=== PATIENT | female | born 1940 | race Two or more races ===

== ENCOUNTER 2017-02-16 11:30 | Inpatient (IN) | payer BC, OTHER ==
[2017-02-16] MEDS ORDERED: ROPIVICAINE 0.2%/MORPH PF/KETOROLAC - 51ML DISP.SYRINGE IA ONE ×2 (12:42→14:27)
[2017-02-16] MEDS ORDERED: VANCOMYCIN 500 MG in DEXTROSE 5%-WATER - 250 ML IVPB ONE (12:42)
[2017-02-16] MEDS ORDERED: TRANEXAMIC ACID 1000 MG/10 ML VIAL IVPUSH ONE (12:42)
[2017-02-16] MEDS ORDERED: CEFAZOLIN 1 GM/D5W 1 GRAM/50 ML BAG IVPB ONE (12:42)
[2017-02-16] MEDS ORDERED: oxyCODONE HCL 10 MG SUSTAINED ACTING TABLET PO ONE (12:42)
[2017-02-16] MEDS ORDERED: MIDAZOLAM HCL 2 MG/2 ML SINGLE DOSE VIAL ONE ×2 (14:09→15:49)
[2017-02-16] MEDS ORDERED: VANCOMYCIN 1,000 MG VIAL (RESTRICTED TO ID ONLY) ONE ×2 (14:27→15:47)
[2017-02-16] MEDS ORDERED: TRANEXAMIC ACID 1000 MG/10 ML VIAL ONE (14:45)
[2017-02-16] MEDS ORDERED: ceFAZolin SODIUM 1 GM VIAL ONE (14:45)
[2017-02-16] MEDS ORDERED: PROPOFOL 20 ML ONE ×3 (14:46)
[2017-02-16] MEDS ORDERED: NEOSTIGMINE METHYLSULFATE 0.5 MG/ML - 10 ML MDV ONE (14:48)
[2017-02-16] MEDS ORDERED: ONDANSETRON 4 MG/2 ML VIAL IVPUSH PRN (15:22)
[2017-02-16] MEDS ORDERED: oxyCODONE HCL 5 MG TABLET PO PRN (15:22)
[2017-02-16] MEDS ORDERED: ACETAMINOPHEN 1000 MG/100 ML VIAL (NON FORMULARY) IVPB ONE ×2 (15:22→21:07)
[2017-02-16] MEDS ORDERED: HYDROmorphone HCL CARPU-JECT 1 MG/1 ML DISP.SYRIN IVPUSH PRN (15:22)
--- NOTE | 2017-02-16 17:46 | OP ---
Operative Note - Note: Operative Date: 02/16/17 Pre-Operative Diagnosis: Left hip osteoarthritis Operation: Proposed left total hip replacement, cancelled on the table due to aspiration. Surgeon: Joshua Chambers Economic Geographer: Marin Chambers Anesthesia: General, Spinal Fluid Volume Replaced (mls): 1,000 Operative Report Dictated: Yes
[2017-02-16] MEDS ORDERED: LABETALOL HCL 5 MG/1 ML (100MG/20 ML VIAL) ONE (18:49)
[2017-02-16] MEDS: LABETALOL HCL 5 MG/1 ML (100MG/20 ML VIAL) IVPUSH ONE (18:55)
--- NOTE | 2017-02-16 19:04 | HOSP ---
Subjective - Review of Symptoms Events since last encounter: I received a phone call from Dr.Daniel Chambers; Orthopedic ,to transfer the patient from [facility] to [facility] for further monitoring for Possible aspiration. As per our discussion, not to give any IV antibiotics or any steroids tonight. Patient is extubated at this time. Nurse elementary supervisor is trying to arrange Bed to tx the patient to [facility]. Physical Examination Vital Signs: Vital Signs Temperature 97.6 F 02/16/17 17:17 Pulse Rate 86 02/16/17 18:45 Respiratory Rate 22 02/16/17 18:45 Blood Pressure 188/87 02/16/17 18:45 O2 Sat by Pulse Oximetry (%) 97 02/16/17 18:45
--- NOTE | 2017-02-16 20:38 | PN ---
Teaching Attending Note Name of Resident: Altaf Cisneros ATTENDING PHYSICIAN STATEMENT I saw and evaluated the patient. I reviewed the resident's note and discussed the case with the resident. I agree with the resident's findings and plan as documented. SUBJECTIVE: 76 F with pmhx of L. hip OA, htn depression who was supposed to have a L. hip replacement today, but procedure was cancelled due to possible aspiration. Pt. states she has a dry cough, which she attributes to a post-nasal drip. No fevers or ch OBJECTIVE: Physical: VS: Vital Signs Period Temp Pulse Resp BP Sys/Hicks Pulse Ox Last 24 Hr 97.6 F-97.6 F 60-95 12-22 144-188/77-102 95-100 GEN: NAD, Resting in bed, AA0X3 HEENT: NCAT, PERRL, Throat without erythema or exudates CARD: RRR S1, S2 RESP: CTAB ABD:BSx 4, NTD to palpation EXT: - C/C/E Home Medications Medication Instructions Recorded Acetaminophen W/ Codeine #3 1 tab PO BID 02/11/17 [Tylenol # 3 -] Amlodipine Besylate 10 mg PO DAILY 02/11/17 Aspirin [Ecotrin] 81 mg PO DAILY 02/11/17 Atorvastatin Ca [Lipitor] 80 mg PO HS 02/11/17 Clonidine HCl 0.1 mg PO HS 02/11/17 Hydrochlorothiazide 50 mg PO DAILY 02/11/17 Loratadine 10 mg PO DAILY 02/11/17 Metoprolol Succinate [Toprol Xl -] 75 mg PO HS 02/11/17 Paroxetine HCl [Paxil] 40 mg PO DAILY 02/11/17 Quinapril HCl [Accupril] 40 mg PO BID 02/11/17 CXR- EKG: jxnal rhythem ASSESSMENT AND PLAN: 76 F with pmhx of L. hip OA, HTN, Depression, HLDm, who was supposed to have a L. hip replacement today, but procedure was cancelled due to possible aspiration 1.) ? Aspiration ro PNA - Monitor as per Sx. did not recc abx. at this time - CBC 2..) OA L. Hip - Pain Control 3.) HTN - C/W Home meds - Chk. CMP 4.) Depression - C/W home meds Monitored in ICU CC Time:
--- NOTE | 2017-02-16 20:53 | CONSULT ---
Consult Consult Specialty:: Pulm/CCM Reason for Consultation:: Possible Aspiration Pneuminitis d/t witnessed aspiration during intubation for surgery - History of Present Illness Chief Complaint: Lt hip pain History of Present Illness: 76yow with PMHx of HTN, HLD, CVA, CKD3, former smoker, depression OA scheduled for planned elective Lt hip replacement today at [place] that was aborted d/ t witnessed aspiration during intubation in the OR. Pt was weaned and extubated successfully to NC O2 and transferred to [facility] ICU for monitoring. Rec'd pt in A+O x3, in NAD, HD stable and c/o Lt hip pain which was resolved with IV tylenol. O2 sat 96% on NC 2l. Has strong cough. Sitting up in bed and instructed in use of incentive spirometer. - History Source History Provided By: Patient, Family Member, Medical Record Limitations to Obtaining History: No Limitations - Past Medical History PROJECT MANAGER INTERIOR DESIGN: Yes: CVA Cardio/Vascular: Yes: HTN, Hyperlipdemia Renal/: Yes: Other (CKD3) Psych: Yes: Depression Musculoskeletal: Yes: Osteoarthritis - Alcohol/Substance Use Hx Alcohol Use: Yes (WINE 1/DAY) - Smoking History Smoking history: Former smoker Have you smoked in the past 12 months: No If you are a former smoker, when did you quit?: 07/12 - Social History Usual Living Arrangement: With Child Home Medications - Allergies Allergies/Adverse Reactions: Allergies Allergy/AdvReac Type Severity Reaction Status Date / Time Sulfa (Sulfonamide Allergy Unknown Verified 02/11/17 11:58 Antibiotics) - Home Medications Home Medications: Ambulatory Orders Acetaminophen W/ Codeine #3 [Tylenol # 3 -] 1 tab PO BID 02/11/17 Amlodipine Besylate 10 mg PO DAILY 02/11/17 Aspirin [Ecotrin] 81 mg PO DAILY 02/11/17 Atorvastatin Ca [Lipitor] 80 mg PO HS 02/11/17 Clonidine HCl 0.1 mg PO HS 02/11/17 Hydrochlorothiazide 50 mg PO DAILY 02/11/17 Loratadine 10 mg PO DAILY 02/11/17 Metoprolol Succinate [Toprol Xl -] 75 mg PO HS 02/11/17 Paroxetine HCl [Paxil] 40 mg PO DAILY 02/11/17 Quinapril HCl [Accupril] 40 mg PO BID 12/15/17 Family Disease History - Family Disease History Family History: Unremarkable Physical Exam Vital Signs: Vital Signs Temperature 97.6 F 02/16/17 19:48 Pulse Rate 87 02/16/17 19:48 Respiratory Rate 22 02/16/17 19:48 Blood Pressure 166/90 02/16/17 19:48 O2 Sat by Pulse Oximetry (%) 95 02/16/17 19:00 Constitutional: Yes: Well Nourished, No Distress Eyes: Yes: WNL HENT: Yes: Atraumatic, Normocephalic Neck: Yes: Supple, Trachea Midline Cardiovascular: Yes: Regular Rate and Rhythm Respiratory: Yes: CTA Bilaterally, Diminished (L base with slight rales) Gastrointestinal: Yes: Normal Bowel Sounds, Soft, Abdomen, Obese Musculoskeletal: Yes: Joint Stiffness, Other (Left hip pain) Edema: Yes Edema: LLE: Trace, RLE: Trace Peripheral Pulses WNL: Yes Neurological: Yes: Alert, Oriented Psychiatric: Yes: Alert, Oriented Labs: Current Medications Acetaminophen (Tylenol -) 650 mg PO Q6H JENNIFER Stop: 02/19/17 15:29 Ondansetron HCl (Zofran Injection) 4 mg IVPUSH Q6H PRN PRN Reason: NAUSEA AND/OR VOMITING Initial Vital Signs Temp Pulse Resp BP 99.1 F 88 20 148/78 02/11/17 12:08 02/11/17 12:08 02/11/17 12:08 02/11/17 12:08 Imaging - Results Chest X-ray: Report Reviewed Problem List - Problems (1) Aspiration into airway Code(s): T17.908A - UNSP FB IN RESP TRACT, PART UNSP CAUSING OTH INJURY, INIT (2) Osteoarthritis Code(s): M19.90 - UNSPECIFIED OSTEOARTHRITIS, UNSPECIFIED SITE Assessment/Plan 76yow with PMHx of HTN, HLD, CVA, CKD3, former smoker, depression OA scheduled for planned elective Lt hip replacement today at [place] that was aborted d/ t witnessed aspiration during intubation in the OR. Pt was weaned and extubated successfully to NC O2 and transferred to [facility] ICU for monitoring. No antibiotics recommended for possible aspiration pneumonitis at this time. Plan: -NC O2 as needed for O2 sat>92% -AM CXR -Pulm toilet -Incentive spirometer -Clears -Pain management -Restart anti HTN meds -DVT proph Leigh Steven, ACNP CC Time 35mins
--- NOTE | 2017-02-16 21:55 | HP ---
CHIEF COMPLAINT: Blanca-operative suspected aspiration PCP: Dr. Burnette HISTORY OF PRESENT ILLNESS: 76 yo woman w/ pmh of HTN, GERD and OA of L hip who underwent an elective L hip replacement w/ Dr. Miranda at [place] today, however surgery was aborted due to witnessed aspiration during intubation. Pt was successfully extubated and transitioned to SD, stable and satting well 95-97% on transfer to ICU. Per pt and daughter, pt w/ no PO intake since 9PM prior day. Pt has never received GA before and endorses no prior aspiration events in past. No hx of LES dysfunction , gastroparesis, however does endorse hx of GERD but takes no medication. Pt with persistent non-productive cough and anterior pleuritic CP worsened by cough since procedure. Presently, pt denies SY/lightheadness, fever/chills, SOB , chest tightness, N/V, abdominal pain or any new neuro symptoms. Per surgical team, pt to receive no abx or steroids overnight. Transferred from [place] Recent Travel: None PAST MEDICAL HISTORY: HTN GERD OA (L hip) Depression PAST SURGICAL HISTORY: Colonoscopy - multiple years ago Upper endoscopy (2 years ago) - reason unknown per pt Social History: Smoking: Former smoker. Alcohol: Social drinker. 2-3 drinks per week Drugs: Marijuana. last smoked w/ months Family History: Brother w/ diabetes Multiple siblings w/ HTN Allergies Sulfa (Sulfonamide Antibiotics) Allergy (Unknown, Verified 02/11/17 11:58) HOME MEDICATIONS: Home Medications Medication Instructions Recorded Acetaminophen W/ Codeine #3 1 tab PO BID 02/11/17 [Tylenol # 3 -] Amlodipine Besylate 10 mg PO DAILY 02/11/17 Aspirin [Ecotrin] 81 mg PO DAILY 02/11/17 Atorvastatin Ca [Lipitor] 80 mg PO HS 02/11/17 Clonidine HCl 0.1 mg PO HS 02/11/17 Hydrochlorothiazide 50 mg PO DAILY 02/11/17 Loratadine 10 mg PO DAILY 02/11/17 Metoprolol Succinate [Toprol Xl -] 75 mg PO HS 02/11/17 Paroxetine HCl [Paxil] 40 mg PO DAILY 02/11/17 Quinapril HCl [Accupril] 40 mg PO BID 02/11/17 REVIEW OF SYSTEMS CONSTITUTIONAL: Absent: fever, chills, diaphoresis, generalized weakness, malaise HEENT: nasal congestion, Absent: rhinorrhea, throat pain, throat swelling, difficulty swallowing, mouth swelling, ear pain, eye pain, visual changes CARDIOVASCULAR: Absent: chest pain, syncope, palpitations, irregular heart rate, lightheadedness , peripheral edema RESPIRATORY: dry cough Absent: shortness of breath, dyspnea with exertion, orthopnea, wheezing, stridor , hemoptysis GASTROINTESTINAL: Absent: abdominal pain, abdominal distension, nausea, vomiting, diarrhea, constipation, melena, hematochezia GENITOURINARY: Absent: dysuria, frequency, urgency, hesitancy, hematuria MUSCULOSKELETAL: arthralgia in L hip, pain in L thigh Absent: myalgia, joint swelling, back pain, neck pain SKIN: Absent: rash, itching, pallor HEMATOLOGIC/IMMUNOLOGIC: Absent: easy bleeding, easy bruising, lymphadenopathy, frequent infections ENDOCRINE: Absent: unexplained weight gain, unexplained weight loss, heat intolerance, cold intolerance NEUROLOGIC: Absent: headache, focal weakness or paresthesias, dizziness, unsteady gait, seizure, mental status changes, bladder or bowel incontinence PHYSICAL EXAMINATION Vital Signs - 24 hr 02/16/17 02/16/17 02/16/17 17:17 17:25 17:30 Temperature 97.6 F Pulse Rate 61 60 62 Respiratory 14 12 17 Rate Blood Pressure 144/77 153/84 162/90 O2 Sat by Pulse 100 100 100 Oximetry (%) 02/16/17 02/16/17 02/16/17 17:45 17:53 18:00 Temperature Pulse Rate 68 90 Respiratory 16 17 14 Rate Blood Pressure 174/81 177/84 O2 Sat by Pulse 100 99 Oximetry (%) 02/16/17 02/16/17 02/16/17 18:11 18:15 18:30 Temperature Pulse Rate 95 H 88 88 Respiratory 14 16 Rate Blood Pressure 166/102 159/87 O2 Sat by Pulse 100 98 98 Oximetry (%) 02/16/17 02/16/17 02/16/17 18:45 19:00 19:48 Temperature 97.6 F Pulse Rate 86 87 87 Respiratory 22 22 22 Rate Blood Pressure 188/87 166/90 166/90 O2 Sat by Pulse 97 95 Oximetry (%) GENERAL: Awake, alert, and fully oriented, in mild distress HEAD: Normal with no signs of trauma. EYES: Pupils equal, round and reactive to light, extraocular movements intact, sclera anicteric, conjunctiva clear. No lid lag. EARS, NOSE, THROAT: Ears normal, nares patent, Small palatal petechiae. Moist mucous membranes. NECK: Normal range of motion, supple without lymphadenopathy, JVD, or masses. LUNGS: Trace crackles in LLL. Otherwise, CTAB. No wheezes. No accessory muscle use. HEART: Regular rate and rhythm, normal S1 and S2 without murmur, rub or gallop. ABDOMEN: Increased tone diffusely. Nontender, not distended, normoactive bowel sounds, no guarding, no rebound, no masses. No hepatomegaly or splenomegaly. MUSCULOSKELETAL: Decreased ROM of L hip to passive/active movement. No CVA tenderness. UPPER EXTREMITIES: 2+ pulses, warm, well-perfused. No cyanosis. No clubbing. No peripheral edema. LOWER EXTREMITIES: 2+ DP, PT pulses. Warm, well-perfused. No calf tenderness. No peripheral edema. NEUROLOGICAL: Cranial nerves II-XII intact. Normal speech. Normal gait. 5/5 strength in all muscle groups in upper extremities, 2+ biceps reflexes, preserved sensation to light touch diffusely. 5/5 strength to flexion/extension in knees BL, dorsi/plantarflexion BL. Preserved sensation to light touch diffusely BL. PSYCHIATRIC: Cooperative. Good eye contact. Appropriate mood and affect. SKIN: Warm, dry, normal turgor, no rashes or lesions noted, normal capillary refill. EKG 02/16: Poor quality paper copy. Rate 55, NAD, QTc 434. No gross ST elevation or TWI. CXR 02/16: An endotracheal tube is seen in place with the tip approximately 1.7 cm from the tracheal bifurcation (optimal distance 3 to 6 cm). Right upper lobe curvilinear opacity is noted which may represent scarring versus representing subsegmental atelectasis. Correlate with close follow-up radiography. Pleural thickening is seen within the right upper chest laterally ASSESSMENT/PLAN: 76 yo woman w/ pmh of HTN, GERD and OA of L hip who underwent an elective L hip replacement w/ Dr. Miranda at [place] today, however surgery was aborted due to witnessed aspiration during intubation. #Suspected aspiration event - NC O2. Titrate as needed. Maintain sat >94% - AM CXR - Trend fever, WBC count - Pulm consult per surgical team, f/u recs - Incentive spirometer - No steroids or abx per surgical team. Will f/u in AM. - Pulm toilet #R hip OA - Pain control w/ IV tylenol - Defer to surgical team for further plan #HTN -Continue home BP meds -Confirm meds in AM #HLD - Atorvastatin 80mg #GERD - PPI #Depression - Continue home paxil PPX SubQ heparin FEN: Fluids - PO hydration Electrolytes - Daily BMPs Nutrition - Clears Plan discussed with attending, Dr. Tameka Cisneros, PGY1 Visit type - Emergency Visit Emergency Visit: No - New Patient This patient is new to me today: Yes Date on this admission: 02/17/17 - Critical Care Critical Care patient: Yes Total Critical Care Time (in minutes): 35 Critical Care Statement: The care of this patient involved high complexity decision making to prevent further life threatening deterioration of the patient 's condition and/or to evaluate & treat vital organ system(s) failure or risk of failure.
[2017-02-16] MEDS ORDERED: oxyCODONE HCL 10 MG SUSTAINED ACTING TABLET PO SCH (22:00)
[2017-02-16] MEDS: ACETAMINOPHEN 325 MG TABLET (FP) PO SCH (22:00)
[2017-02-16 22:09] VITALS: BMI 28.6
[2017-02-17] MEDS: ACETAMINOPHEN 325 MG TABLET (FP) PO SCH ×3 (03:30→17:40)
[2017-02-17] MEDS: HEPARIN NA (PORCINE) 5,000 UNITS/ML 1ML VIAL SQ SCH ×3 (06:16→22:16)
[2017-02-17 06:19] LABS: BASO % 0.3 % (0-2.0); EOS % 0.5 % (0-4.5); HEMATOCRIT 31.1 % (32.4-45.2); HEMOGLOBIN 10.7 GM/dL (10.7-15.3); LYMPH % 19.9 % (8-40); MCHC 34.3 g/dl (32.0-36.0); MEAN CELL VOLUME 90.2 fl (80-96); MEAN PLT VOLUME 7.6 fl (7.5-11.1); MONO % 5.6 % (3.8-10.2); NEUT % 73.7 % (42.8-82.8); PLATELET COUNT 213 K/MM3 (134-434); RBC 3.45 M/mm3 (3.60-5.2); RDW 13.5 % (11.6-15.6); WHITE BLOOD COUNT 9.7 K/mm3 (4.0-10.0)
[2017-02-17 06:46] LABS: ALBUMIN 3.5 g/dl (3.4-5.0); ANION GAP 7 (8-16); BLOOD UREA NITROGEN 13 mg/dL (7-18); CALCIUM 9.3 mg/dL (8.5-10.1); CHLORIDE 103 mmol/L (98-107); CO2 31 mmol/L (21-32); GLUCOSE,RANDOM 101 mg/dL (74-106); POTASSIUM 4.1 mmol/L (3.5-5.1); SODIUM 141 mmol/L (136-145)
[2017-02-17 06:51] LABS: ALK PHOS 91 U/L (45-117); BILIRUBIN,TOTAL 0.5 mg/dL (0.2-1.0); CREATININE 1.2 mg/dL (0.55-1.02); SGOT/AST 20 U/L (15-37); SGPT/ALT 22 U/L (12-78); TOT PROT 6.5 g/dl (6.4-8.2)
[2017-02-17] MEDS ORDERED: AMPICILLIN NA/SULBACTAM NA 3 GM in SODIUM CHLORIDE 100 ML IVPB ONE (09:21)
[2017-02-17] MEDS ORDERED: PANTOPRAZOLE 40 MG TABLET (FP) PO SCH ×4 (10:00→22:00)
[2017-02-17] MEDS ORDERED: PARoxetine HCL 20 MG TABLET (FP) PO SCH (10:00)
[2017-02-17] MEDS ORDERED: ACETAMINOPHEN WITH CODEINE 300MG/30MG TABLET PO PRN ×2 (10:08→16:04)
[2017-02-17] MEDS ORDERED: HYDROCHLOROTHIAZIDE 25 MG TABLET (FP) PO SCH (11:00)
[2017-02-17] MEDS ORDERED: ASPIRIN COATED 81 MG TABLET.EC PO SCH (11:00)
[2017-02-17] MEDS ORDERED: amLODIPine BESYLATE 10 MG TABLET (FP) PO SCH (11:00)
[2017-02-17] MEDS ORDERED: QUINAPRIL HCL 40 MG TABLET (FP) PO SCH ×2 (11:00→22:00)
[2017-02-17] MEDS ORDERED: PT OWN MED DRAWER 7, Y5N ONE ×4 (11:39→21:56)
--- NOTE | 2017-02-17 12:11 | OP ---
DATE OF OPERATION: 02/16/2017 SURGEON: Joshua Chambers MD CORN SHELLER OPERATOR: Marin Chambers MD PREOPERATIVE DIAGNOSIS: Osteoarthritis, left hip. POSTOPERATIVE DIAGNOSIS: Operation canceled due to aspiration event on the table. ANESTHESIA: Spinal with conscious sedation. OPERATION DETAILS: The patient correctly identified, brought to the operating room. The patient was placed in the lateral decubitus position, left side up. Attention to details of the bolster clamps for the lateral positioning was performed as routine for this operation. The manufactured padded components of the device were placed in the usual manner on the anterior-superior iliac spine, both left- and right-hand side, and then, on the lumbosacral junction posteriorly, all pads on bony prominences. The abdomen was free. An appropriate routine prep with Betadine scrub solution and alcohol was performed. The limb was isolated with the appropriate U isolation drapes, and at that point, I proceeded to go ahead with hand wash prior to surgical intervention. I was called by the anesthesia team at that point to state that bile and intraabdominal content were being exuded from the mouth. It was at this point that we elected to abandon the clamps, that is the bolsters that were holding the patient in the lateral decubitus position. The patient was then turned into the supine position, and in order to facilitate procedure with the total hip arthroplasty, it was elected to go ahead with regular intubation and proceed. However, the degree of aspiration content was noted from the endotracheal tube. Once the patient was placed in the supine position, it was noted that there was excessive amount of intraabdominal content in the pharyngeal region and nasopharyngeal area. This was suctioned appropriately, and intubation was proceeded with and was uneventful in its execution. At that point, the anesthesia team auscultated the lung dove, found significant adventitious sounds such as rhonchi and crackles, and when this was noted clinically, it was elected, after careful discussion in a combined fashion with the surgical as well as anesthesia team, to not proceed with any further surgery due to the concern of a possible aspiration event. Patient was kept intubated, transferred to the PACU unit, and will be managed by the appropriate medical and respiratory team. Hopefully, the patient will recover without any undue problems, and the patient will be brought back on a separate occasion to proceed with the proposed surgical intervention. MD SANDRA Corbett/[id number]
--- NOTE | 2017-02-17 12:21 | PN ---
Teaching Attending Note Name of Resident: Vanna Khan ATTENDING PHYSICIAN STATEMENT I saw and evaluated the patient. I reviewed the resident's note and discussed the case with the resident. I agree with the resident's findings and plan as documented. SUBJECTIVE: Patient is comfortable with no acute distress. OBJECTIVE: Vital Signs Temperature 100.1 F H 02/17/17 10:00 Pulse Rate 76 02/17/17 10:36 Respiratory Rate 16 02/17/17 10:27 Blood Pressure 135/72 02/17/17 11:47 O2 Sat by Pulse Oximetry (%) 92 L 02/17/17 10:36 CBCD WBC 9.7 K/mm3 (4.0-10.0) 02/17/17 06:00 RBC 3.45 M/mm3 (3.60-5.2) L 02/17/17 06:00 Hgb 10.7 GM/dL (10.7-15.3) 02/17/17 06:00 Hct 31.1 % (32.4-45.2) L 02/17/17 06:00 MCV 90.2 fl (80-96) 02/17/17 06:00 MCHC 34.3 g/dl (32.0-36.0) 02/17/17 06:00 RDW 13.5 % (11.6-15.6) 02/17/17 06:00 Plt Count 213 K/MM3 (134-434) 02/17/17 06:00 MPV 7.6 fl (7.5-11.1) 02/17/17 06:00 CMP Sodium 141 mmol/L (136-145) 02/17/17 06:00 Potassium 4.1 mmol/L (3.5-5.1) 02/17/17 06:00 Chloride 103 mmol/L (98-107) 02/17/17 06:00 Carbon Dioxide 31 mmol/L (21-32) 02/17/17 06:00 Anion Gap 7 (8-16) L 02/17/17 06:00 BUN 13 mg/dL (7-18) 02/17/17 06:00 Creatinine 1.2 mg/dL (0.55-1.02) H 02/17/17 06:00 Creat Clearance w eGFR 43.68 (>60) 02/17/17 06:00 Random Glucose 101 mg/dL (74-106) 02/17/17 06:00 Calcium 9.3 mg/dL (8.5-10.1) 02/17/17 06:00 Total Bilirubin 0.5 mg/dL (0.2-1.0) 02/17/17 06:00 AST 20 U/L (15-37) 02/17/17 06:00 ALT 22 U/L (12-78) 02/17/17 06:00 Alkaline Phosphatase 91 U/L (45-117) 02/17/17 06:00 Total Protein 6.5 g/dl (6.4-8.2) 02/17/17 06:00 Albumin 3.5 g/dl (3.4-5.0) 02/17/17 06:00 Current Medications Generic Name Dose Route Start Last Admin Trade Name Freq PRN Reason Stop Dose Admin Acetaminophen 650 mg 02/16/17 15:30 02/17/17 03:30 Tylenol - PO 02/19/17 15:29 Not Given Q6H JENNIFER Acetaminophen/Codeine Phosphate 1 tab 02/17/17 10:08 02/17/17 10:42 Tylenol # 3 - PO 1 tab Q6H PRN Administration FEVER OR PAIN Amlodipine Besylate 10 mg 02/17/17 11:00 02/17/17 11:35 Norvasc - PO 10 mg DAILY JENNIFER Administration Aspirin 81 mg 02/17/17 11:00 02/17/17 11:34 Ecotrin - PO 81 mg DAILY JENNIFER Administration Atorvastatin Calcium 80 mg 02/17/17 22:00 Lipitor - PO HS JENNIFER Clonidine 0.1 mg 02/17/17 22:00 Catapres - PO HS JENNIFER Heparin Sodium (Porcine) 5,000 unit 02/17/17 06:00 02/17/17 06:16 Heparin - SQ 5,000 unit TID JENNIFER Administration Hydrochlorothiazide 50 mg 02/17/17 11:00 02/17/17 11:40 Hctz - PO 50 mg DAILY JENNIFER Administration Metoprolol Succinate 75 mg 02/17/17 22:00 Toprol Xl - PO HS JENNIFER Ondansetron HCl 4 mg 02/16/17 15:22 Zofran Injection IVPUSH Q6H PRN NAUSEA AND/OR VOMITING Pantoprazole Sodium 40 mg 02/17/17 10:00 02/17/17 11:34 Protonix - PO 40 mg BID JENNIFER Administration Paroxetine HCl 40 mg 02/17/17 10:00 02/17/17 11:40 Paxil - PO 40 mg DAILY JENNIFER Administration Quinapril HCl 40 mg 02/17/17 11:00 Accupril - PO BID [facility] Home Medications Medication Instructions Recorded Acetaminophen W/ Codeine #3 1 tab PO BID 02/11/17 [Tylenol # 3 -] Amlodipine Besylate 10 mg PO DAILY 02/11/17 Aspirin [Ecotrin] 81 mg PO DAILY 02/11/17 Atorvastatin Ca [Lipitor] 80 mg PO HS 02/11/17 Clonidine HCl 0.1 mg PO HS 02/11/17 Hydrochlorothiazide 50 mg PO DAILY 02/11/17 Loratadine 10 mg PO DAILY 02/11/17 Metoprolol Succinate [Toprol XL -] 75 mg PO HS 02/11/17 Paroxetine HCl [Paxil] 40 mg PO DAILY 02/11/17 Quinapril HCl [Accupril -] 40 mg PO BID 02/11/17 PE: comfortable, with no acute distress. CHESt: CTABL Heart:S1S2 positive abdomen: soft, NT ext: pulses are positive ASSESSMENT AND PLAN: Patient is a 76 F with pmhx of L. hip OA, HTN, Depression, HLD was transferred from [facility] due to possible having aspiration Pneumonia right before the procedure for left hip placement. The procedure was discontinued. # Acute Hypoxia , low oxygenation on RA , the discharge was held, oxygen therapy , incentive spirometer. # OA of Left hip, Sx needs to be rescheduled and pulmonary clearance prior to surgery . Patient is aware. # OA Left Hip needing surgical replacement. Pain Control # HTN continue Home meds # hx of Depression continue home meds. DVT Px: Heparin sq
--- NOTE | 2017-02-17 12:31 | PN ---
Physical Exam: SUBJECTIVE: Patient seen and examined 76 year old F with pmh L hip OA, HTN, gerd presented with possible aspiration pneumonia. Patient had no acute events overnight. Patient feels better this AM. Patient endorses mild cough. Denies fever, chills, chest pain, SOB. Patient has left hip pain. OBJECTIVE: Vital Signs Period Temp Pulse Resp BP Sys/Hicks Pulse Ox Last 24 Hr 97.6 F-100.1 F 60-95 12-22 133-188/64-119 92-100 GENERAL: The patient is awake, alert, and fully oriented, in no acute distress. HEAD: Normal with no signs of trauma. EYES: Extraocular movements intact, sclera anicteric, conjunctiva clear. No ptosis. ENT: Oropharynx clear without exudates, moist mucous membranes. NECK: Trachea midline, full range of motion, supple. LUNGS: Breath sounds equal, no wheezes, no crackles, no accessory muscle use. + mild RUL rhonchi HEART: Regular rate and rhythm, S1, S2 without murmur, rub or gallop. ABDOMEN: Soft, nontender, nondistended, normoactive bowel sounds, no guarding, no rebound, no hepatosplenomegaly, no masses. EXTREMITIES: 2+ pulses, warm, well-perfused, no edema. NEUROLOGICAL: Cranial nerves II through XII grossly intact. Normal speech, gait not observed. PSYCH: Normal mood, normal affect. SKIN: Warm, dry, normal turgor, no rashes or lesions noted Laboratory Results - last 24 hr 02/17/17 02/17/17 06:00 06:00 WBC 9.7 RBC 3.45 L Hgb 10.7 Hct 31.1 L MCV 90.2 MCH 31.0 MCHC 34.3 RDW 13.5 Plt Count 213 MPV 7.6 Neutrophils % 73.7 Lymphocytes % 19.9 Monocytes % 5.6 Eosinophils % 0.5 Basophils % 0.3 Sodium 141 Potassium 4.1 Chloride 103 Carbon Dioxide 31 Anion Gap 7 L BUN 13 Creatinine 1.2 H Creat Clearance w eGFR 43.68 Random Glucose 101 Calcium 9.3 Total Bilirubin 0.5 AST 20 ALT 22 Alkaline Phosphatase 91 Total Protein 6.5 Albumin 3.5 Active Medications Generic Name Dose Route Start Last Admin Trade Name Freq PRN Reason Stop Dose Admin Acetaminophen 650 mg 02/16/17 15:30 02/17/17 03:30 Tylenol - PO 02/19/17 15:29 Not Given Q6H JENNIFER Acetaminophen/Codeine Phosphate 1 tab 02/17/17 10:08 02/17/17 10:42 Tylenol # 3 - PO 1 tab Q6H PRN Administration FEVER OR PAIN Amlodipine Besylate 10 mg 02/17/17 11:00 02/17/17 11:35 Norvasc - PO 10 mg DAILY JENNIFER Administration Aspirin 81 mg 02/17/17 11:00 02/17/17 11:34 Ecotrin - PO 81 mg DAILY JENNIFER Administration Atorvastatin Calcium 80 mg 02/17/17 22:00 Lipitor - PO HS JENNIFER Clonidine 0.1 mg 02/17/17 22:00 Catapres - PO HS JENNIFER Heparin Sodium (Porcine) 5,000 unit 02/17/17 06:00 02/17/17 06:16 Heparin - SQ 5,000 unit TID JENNIFER Administration Hydrochlorothiazide 50 mg 02/17/17 11:00 02/17/17 11:40 Hctz - PO 50 mg DAILY JENNIFER Administration Metoprolol Succinate 75 mg 02/17/17 22:00 Toprol Xl - PO HS JENNIFER Ondansetron HCl 4 mg 02/16/17 15:22 Zofran Injection IVPUSH Q6H PRN NAUSEA AND/OR VOMITING Pantoprazole Sodium 40 mg 02/17/17 10:00 02/17/17 11:34 Protonix - PO 40 mg BID JENNIFER Administration Paroxetine HCl 40 mg 02/17/17 10:00 02/17/17 11:40 Paxil - PO 40 mg DAILY JENNIFER Administration Quinapril HCl 40 mg 02/17/17 11:00 Accupril - PO BID [facility] ASSESSMENT/PLAN: 76 yo woman w/ pmh of HTN, GERD and OA of L hip who underwent an elective L hip replacement w/ Dr. Miranda at [place] today, however surgery was aborted due to witnessed aspiration during intubation. Resp Possible aspiration pna vs chemical pneumonitis - NC O2. Titrate as needed. Maintain sat >94% - Trend fever, WBC count. Tmax of 100.1 - Incentive spirometer MSK R hip OA - Pain control w/ IV tylenol - Pt will f/u outpatient CV HTN - Continue home BP meds HLD - Atorvastatin 80mg GI GERD -PO protonix 40 mg bid PSYCH Depression - Continue home paxil FEN: -Fluids - PO hydration -Electrolytes - Daily BMPs -Nutrition -Sodium controlled diet PPX -SubQ heparin -PO protonix Dispo: Patient will be dc home per primary team Visit type - Emergency Visit Emergency Visit: Yes ED Registration Date: 02/16/17 Care time: The patient presented to the Emergency Department on the above date and was hospitalized for further evaluation of their emergent condition. - New Patient This patient is new to me today: Yes Date on this admission: 02/17/17 - Critical Care Critical Care patient: Yes Total Critical Care Time (in minutes): 35 Critical Care Statement: The care of this patient involved high complexity decision making to prevent further life threatening deterioration of the patient 's condition and/or to evaluate & treat vital organ system(s) failure or risk of failure.
--- NOTE | 2017-02-17 13:13 | PN ---
Teaching Attending Note Name of Resident: Vahid Biswas ATTENDING PHYSICIAN STATEMENT I saw and evaluated the patient. I reviewed the resident's note and discussed the case with the resident. I agree with the resident's findings and plan as documented. SUBJECTIVE: Pt seen and examined in the ICU. Denies shortness of breath. Mild nonproductive cough. Saturating well on room air. c/o left hip pain. OBJECTIVE: Last Vital Signs Temp Pulse Resp BP Pulse Ox 100.1 F H 76 16 135/72 92 L 02/17/17 10:00 02/17/17 10:36 02/17/17 10:27 02/17/17 11:47 02/17/17 10:36 Intake & Output 02/14/17 02/15/17 02/16/17 02/17/17 23:59 23:59 23:59 23:59 Intake Total 2000 370 Output Total 200 Balance 1800 370 Weight 73.4 kg 81.306 kg Gen: NAD at rest Heart: RRR Lung: clear to auscultation Abd: soft, nontender Ext: no edema CBC, BMP 02/17/17 06:00 02/17/17 06:00 Active Medications Acetaminophen (Tylenol -) 650 mg PO Q6H [facility] Stop: 02/19/17 15:29 Last Admin: 02/17/17 03:30 Dose: Not Given Acetaminophen/Codeine Phosphate (Tylenol # 3 -) 1 tab PO Q6H PRN PRN Reason: FEVER OR PAIN Last Admin: 02/17/17 10:42 Dose: 1 tab Amlodipine Besylate (Norvasc -) 10 mg PO DAILY [facility] Last Admin: 02/17/17 11:35 Dose: 10 mg Aspirin (Ecotrin -) 81 mg PO DAILY [facility] Last Admin: 02/17/17 11:34 Dose: 81 mg Atorvastatin Calcium (Lipitor -) 80 mg PO HS JENNIFER Clonidine (Catapres -) 0.1 mg PO HS JENNIFER Heparin Sodium (Porcine) (Heparin -) 5,000 unit SQ TID [facility] Last Admin: 02/17/17 06:16 Dose: 5,000 unit Hydrochlorothiazide (Hctz -) 50 mg PO DAILY [facility] Last Admin: 02/17/17 11:40 Dose: 50 mg Metoprolol Succinate (Toprol Xl -) 75 mg PO HS JENNIFER Ondansetron HCl (Zofran Injection) 4 mg IVPUSH Q6H PRN PRN Reason: NAUSEA AND/OR VOMITING Pantoprazole Sodium (Protonix -) 40 mg PO BID [facility] Last Admin: 02/17/17 11:34 Dose: 40 mg Paroxetine HCl (Paxil -) 40 mg PO DAILY [facility] Last Admin: 02/17/17 11:40 Dose: 40 mg Quinapril HCl (Accupril -) 40 mg PO BID [facility] ASSESSMENT AND PLAN: Aborted L Hip Replacement Aspiration Event HTN Hyperlipidemia CKD h/o CVA - resume home meds - can monitor off antibiotics - PO as tolerated - DVT prophylaxis - can transfer to floor or d/c home from pulmonary standpoint
--- NOTE | 2017-02-17 14:21 | PN ---
Progress Note, Physician Chief Complaint: Pt. has mild non productive cough, and no anesthesia complaints. - Current Medication List Current Medications: Active Medications Acetaminophen (Tylenol -) 650 mg PO Q6H [facility] Stop: 02/19/17 15:29 Last Admin: 02/17/17 03:30 Dose: Not Given Acetaminophen/Codeine Phosphate (Tylenol # 3 -) 1 tab PO Q6H PRN PRN Reason: FEVER OR PAIN Last Admin: 02/17/17 10:42 Dose: 1 tab Amlodipine Besylate (Norvasc -) 10 mg PO DAILY [facility] Last Admin: 02/17/17 11:35 Dose: 10 mg Aspirin (Ecotrin -) 81 mg PO DAILY [facility] Last Admin: 02/17/17 11:34 Dose: 81 mg Atorvastatin Calcium (Lipitor -) 80 mg PO HS [facility] Clonidine (Catapres -) 0.1 mg PO HS [facility] Heparin Sodium (Porcine) (Heparin -) 5,000 unit SQ TID [facility] Last Admin: 02/17/17 06:16 Dose: 5,000 unit Hydrochlorothiazide (Hctz -) 50 mg PO DAILY [facility] Last Admin: 02/17/17 11:40 Dose: 50 mg Metoprolol Succinate (Toprol Xl -) 75 mg PO HS [facility] Ondansetron HCl (Zofran Injection) 4 mg IVPUSH Q6H PRN PRN Reason: NAUSEA AND/OR VOMITING Pantoprazole Sodium (Protonix -) 40 mg PO BID [facility] Last Admin: 02/17/17 11:34 Dose: 40 mg Paroxetine HCl (Paxil -) 40 mg PO DAILY [facility] Last Admin: 02/17/17 11:40 Dose: 40 mg Quinapril HCl (Accupril -) 40 mg PO BID [facility] - Objective Vital Signs: Vital Signs Temperature 100.1 F H 02/17/17 10:00 Pulse Rate 76 02/17/17 10:36 Respiratory Rate 16 02/17/17 10:27 Blood Pressure 135/72 02/17/17 11:47 O2 Sat by Pulse Oximetry (%) 92 L 02/17/17 10:36 Constitutional: Yes: Well Nourished, No Distress, Calm Respiratory: Yes: WNL Musculoskeletal: Yes: WNL Neurological: Yes: WNL, Alert, Oriented ...Motor Strength: WNL Labs: CBC, BMP 02/17/17 06:00 02/17/17 06:00 Assessment/Plan Day #1 s/p aborted hip replacement secondary to possible aspiration event. Doing well on room air. D/C from anesthesia care.
[2017-02-17] MEDS ORDERED: ROPIVICAINE 0.2%/MORPH PF/KETOROLAC - 51ML DISP.SYRINGE IA ONE (16:04)
[2017-02-17] MEDS ORDERED: TRANEXAMIC ACID 1000 MG/10 ML VIAL IVPUSH ONE (16:04)
[2017-02-17] MEDS ORDERED: VANCOMYCIN 500 MG in DEXTROSE 5%-WATER - 250 ML IVPB ONE (16:04)
[2017-02-17] MEDS ORDERED: ONDANSETRON 4 MG/2 ML VIAL IVPUSH PRN (16:04)
--- NOTE | 2017-02-17 16:10 | PN ---
Progress Note (short form) - Note Progress Note: Called to see a patient set for discharge home said to have been sating poorly ( 87%) on room air , while asleep. Was put on nasal cannular at 2l. Spoke with patient who on room air was sating at 97%, and at 90% asleep She said she smoked in the past, has sinus problems but has never been evaluated for obstructive Sleep apnea PE: Gen:AAO x3 Resp: Not in obvious resp distress, no use of accessory muscles Speaks in complete sentences Sating at 95% on room air Plan: D/W Dr Cotton- for discharge home with follow up for ZACARIAS D/W patient - to have outpatient sleep study To discuss with primary team
[2017-02-17] MEDS: LABETALOL HCL 5 MG/1 ML (100MG/20 ML VIAL) IVPUSH ONE (17:39)
--- NOTE | 2017-02-17 20:32 | PN ---
Physical Exam: SUBJECTIVE: Patient seen and examined. States she is feeling better. Endorses mild persistent cough and L hip pain. Denies chest pain, sob, fever, chills. OBJECTIVE: Vital Signs Period Temp Pulse Resp BP Sys/Hicks Pulse Ox Last 24 Hr 99.1 F-100.1 F 72-87 16-22 133-166/64-119 92-100 GENERAL: lying comfortably in bed, nad, aaox3, speaking in full sentences LUNGS: CTAB, no wheezes, rales or rhonchi. No accessory muscle use. HEART: rrr, normal s1/s2 ABDOMEN: Soft, ntnd, normoactive bowel sounds EXTREMITIES: 2+ radial and DP pulses, wwp, no edema CBC, BMP 02/17/17 06:00 02/17/17 06:00 Hepatic Panel Total Bilirubin 0.5 mg/dL (0.2-1.0) 02/17/17 06:00 AST 20 U/L (15-37) 02/17/17 06:00 ALT 22 U/L (12-78) 02/17/17 06:00 Alkaline Phosphatase 91 U/L (45-117) 02/17/17 06:00 Albumin 3.5 g/dl (3.4-5.0) 02/17/17 06:00 Active Medications Acetaminophen/Codeine Phosphate (Tylenol # 3 -) 1 tab PO Q6H PRN PRN Reason: FEVER OR PAIN Albuterol/Ipratropium (Duoneb -) 1 amp NEB QIDR JENNIFER Amlodipine Besylate (Norvasc -) 10 mg PO DAILY JENNIFER Aspirin (Ecotrin -) 81 mg PO DAILY [facility] Atorvastatin Calcium (Lipitor -) 80 mg PO HS JENNIFER Clonidine (Catapres -) 0.1 mg PO HS JENNIFER Heparin Sodium (Porcine) (Heparin -) 5,000 unit SQ TID JENNIFRE Hydrochlorothiazide (Hctz -) 50 mg PO DAILY JENNIFER Metoprolol Succinate (Toprol Xl -) 75 mg PO HS JENNIFER Pantoprazole Sodium (Protonix -) 40 mg PO HS JENNIFER Paroxetine HCl (Paxil -) 40 mg PO DAILY [facility] Quinapril HCl (Accupril -) 40 mg PO BID [facility] ASSESSMENT/PLAN: 76 yo woman w/ pmh of HTN, GERD and OA of L hip who underwent an elective L hip replacement w/ Dr. Miranda at [place] today, however surgery was aborted due to witnessed aspiration during intubation. #Suspected aspiration event -O2 therapy to maintain spo2>90% -Repeat CXR AM -Incentive spirometer q1H -Duo nebs QIDR #R hip OA -Pain control w/ Tylenol #3 q6h PRN -Will follow-up with Dr. Chambers to reschedule hip replacement #HTN -Continue home Metoprolol Xl 75mg PO HS, Clonidine 0.1mg PO HS, Amlodipine 10mg PO qd, Quinapril 40mg BID #HLD - Atorvastatin 80mg #GERD -Protonix 40mg HS #Depression -Continue home Paxil #PPX DVT - Heparin SQ TID #FEN: PO/ lytes wnl / Na controlled diet Dispo: transfer to /S. Will likely d/c in next 24hours FULL code d/w Dr. Reena Khan MD PGY1 - Internal Medicine Visit type - Emergency Visit Emergency Visit: No - New Patient This patient is new to me today: Yes Date on this admission: 02/17/17 - Critical Care Critical Care patient: No
[2017-02-17] MEDS ORDERED: METOPROLOL SUCCINATE 50 MG TAB.SR.24H (FP) PO SCH (22:00)
[2017-02-17] MEDS ORDERED: cloNIDine HCL 0.1 MG TABLET PO SCH ×3 (22:00)
[2017-02-17] MEDS ORDERED: ATORVASTATIN CA 80 MG TABLET (FP) PO SCH ×3 (22:00)
[2017-02-17] MEDS ORDERED: METOPROLOL SUCCINATE 25 MG TAB.SR.24H (FP) PO SCH ×2 (22:00)
[2017-02-17] MEDS ORDERED: HEPARIN NA (PORCINE) 5,000 UNITS/ML 1ML VIAL SQ SCH (22:00)
[2017-02-17] MEDS: QUINAPRIL HCL 40 MG TABLET (FP) PO SCH (22:16)
[2017-02-17] MEDS: ACETAMINOPHEN WITH CODEINE 300MG/30MG TABLET PO PRN (22:20)
[2017-02-18] MEDS: ALBUTEROL SO4 2.5/IPRATROPIUM 0.5 INH SOL 3 ML VIAL.NEB. NEB SCH ×3 (00:16→11:10)
[2017-02-18] MEDS: HEPARIN NA (PORCINE) 5,000 UNITS/ML 1ML VIAL SQ SCH ×2 (06:10→16:30)
[2017-02-18] MEDS: ACETAMINOPHEN WITH CODEINE 300MG/30MG TABLET PO PRN (08:00)
[2017-02-18 08:37] LABS: BASO % 0.4 % (0-2.0); EOS % 2.7 % (0-4.5); HEMATOCRIT 32.6 % (32.4-45.2); HEMOGLOBIN 10.8 GM/dL (10.7-15.3); LYMPH % 38.6 % (8-40); MCHC 33.2 g/dl (32.0-36.0); MEAN CELL VOLUME 90.4 fl (80-96); MEAN PLT VOLUME 7.7 fl (7.5-11.1); MONO % 7.8 % (3.8-10.2); NEUT % 50.5 % (42.8-82.8); PLATELET COUNT 208 K/MM3 (134-434); RBC 3.61 M/mm3 (3.60-5.2); RDW 13.5 % (11.6-15.6); WHITE BLOOD COUNT 5.8 K/mm3 (4.0-10.0)
[2017-02-18 08:58] LABS: ANION GAP 7 (8-16); BLOOD UREA NITROGEN 12 mg/dL (7-18); CALCIUM 9.1 mg/dL (8.5-10.1); CHLORIDE 104 mmol/L (98-107); CO2 31 mmol/L (21-32); CREATININE 1.3 mg/dL (0.55-1.02); GLUCOSE,RANDOM 110 mg/dL (74-106); POTASSIUM 3.7 mmol/L (3.5-5.1); SODIUM 142 mmol/L (136-145)
[2017-02-18] MEDS ORDERED: amLODIPine BESYLATE 10 MG TABLET (FP) PO SCH ×2 (10:00)
[2017-02-18] MEDS ORDERED: PARoxetine HCL 20 MG TABLET (FP) PO SCH ×2 (10:00)
[2017-02-18] MEDS ORDERED: HYDROCHLOROTHIAZIDE 25 MG TABLET (FP) PO SCH (10:00)
[2017-02-18] MEDS ORDERED: ASPIRIN COATED 81 MG TABLET.EC PO SCH ×2 (10:00)
[2017-02-18] MEDS ORDERED: PT OWN MED DRAWER 7, Y5N ONE (10:21)
--- NOTE | 2017-02-18 10:26 | PN ---
Progress Note (short form) - Note Progress Note: PULMONARY VSS/AFEBRILE DROWSY AFTER TYLENOL #3 ANICTERIC DIMINISHED DIFFUSE BREATH SOUNDS' S1S2 OBESE MINIMAL LOWER EXT EDEMA LABS/MEDS/NOTES/IMAGES REVIEWED CXR NORMAL NO INFILTRATE Aborted L Hip Replacement Aspiration Event HTN Hyperlipidemia CKD h/o CVA - resume home meds - monitor off antibiotics - PO as tolerated - DVT prophylaxis - check pre/post amb spo2 - possible discharge today Vineet PRUETT MD
[2017-02-18] MEDS: HYDROCHLOROTHIAZIDE 25 MG TABLET (FP) PO SCH ×2 (10:29→10:34)
[2017-02-18] MEDS: QUINAPRIL HCL 40 MG TABLET (FP) PO SCH (10:29)
[2017-02-18] MEDS ORDERED: CELECOXIB 100 MG CAPSULE PO ONE (13:29)
--- NOTE | 2017-02-18 18:27 | DS ---
Physical Exam: HOSPITAL COURSE: Date of Admission:02/16/17 Date of Discharge: 02/18/17 Pre-Hospital Course: 76yo woman with PMH of HTN, GERD and OA of L hip who underwent an elective L hip replacement w/ Dr. Miranda at [place] 02/16, however surgery was aborted due to witnessed aspiration during intubation. Pt was successfully extubated and transitioned to NC, stable and satting well 95-97% on transfer to ICU. Per pt and daughter, pt w/ no PO intake since 9PM prior day. Pt has never received GA before and endorses no prior aspiration events in past. No hx of LES dysfunction, gastroparesis, however does endorse hx of GERD, but takes no medication. Pt with persistent non-productive cough. Pt denies SY/ lightheadedness, fever/chills, SOB, chest tightness, N/V, abdominal pain or any new neuro symptoms. Subsequent admission course: Briefly, patient was able to be successfully weaned downed from NC oxygen therapy then to room air. Pulmonology was consulted, and recommended out- patient follow-up for PFTs and sleep study for ZACARIAS. Prior to discharge, patient' s Pre and post pSao2 on RA was 95% at rest and 91-92% with ambulation across the room (from window to the hallway). Patient received only paula-operative Ancef with no further antibiotics. Patient remained afebrile with no leukocytosis. Repeat CXR showed improved aeration with no focal consolidations or pleural effusions. Patient instructed on how to use Incentive Spirometer, and demonstrated understanding to use it every 1 to 2 hours while at home. Patient was started on Protonix 40mg HS for her GERD and was given a referral to GI for follow-up. Patient's blood pressure was well controlled during her admission. Consults: Pulmonology - Dr. Delgado Orthopedics - Dr. Joshua Chambers IMAGING: CXR 02/18/17 - large heart, unfolded aorta and degenerative spine and shoulder changes. An acute chest process is not seen. Since the prior exam of 02/17/2017 , the lungs are better aerated. The left base changes have resolved. Impression: No acute chest pathology at this time. Large heart. Degenerative changes. Minutes to complete discharge: 45 Discharge Summary Reason For Visit: LEFT OSTEOARTHRITIS Current Active Problems Aspiration into airway (Acute) Osteoarthritis (Acute) Condition: Stable - Instructions Diet, Activity, Other Instructions: You were admitted to the hospital for an aspiration event prior to your elective orthopedic surgery. Recommendations: -You can resume your regular daily activities and diet. -Use your Incentive Spirometer as directed every 1-2 hours while you are awake to prevent pneumonia Medications: -You may resume your regular daily medications with the following addition: (1) Take Protonix 40mg by mouth at bedtime for your reflux. Discuss with Dr. Cuevas (stomach doctor) when you should stop taking it. Follow-ups: -Please see your primary care physician within 1 week for post-hospital evaluation. -Please make an appointment within [address] Lemus Pulmonology (lung doctor) to schedule your lung function tests and set-up a sleep study. -Please make an appointment within [address] Cuevas, Gastroenterology ( stomach doctor) to discuss your Reflux and when to stop taking Protonix. -Please follow-up with Dr. Chambers regarding rescheduling your surgery. Please return to the Emergency Department if you have any fever, chills, shortness of breath, chest pain, or any new, worsening, or concerning symptoms. Referrals: Collin Lemus MD [Staff Physician] - 1 Week Germán Cuevas MD [Staff Physician] - 1 Week Joshua Chambers MD [Staff Physician] - 1 Week Disposition: HOME - Home Medications Comprehensive Discharge Medication List: Ambulatory Orders Acetaminophen W/ Codeine #3 [Tylenol # 3 -] 1 tab PO BID 02/11/17 Amlodipine Besylate 10 mg PO DAILY 02/11/17 Aspirin [Ecotrin] 81 mg PO DAILY 02/11/17 Atorvastatin Ca [Lipitor] 80 mg PO HS 02/11/17 Clonidine HCl 0.1 mg PO HS 02/11/17 Hydrochlorothiazide 50 mg PO DAILY 02/11/17 Loratadine 10 mg PO DAILY 02/11/17 Metoprolol Succinate [Toprol XL -] 75 mg PO HS 02/11/17 Paroxetine HCl [Paxil] 40 mg PO DAILY 02/11/17 Quinapril HCl [Accupril -] 40 mg PO BID 02/11/17 Pantoprazole Sodium [Protonix -] 40 mg PO HS #30 tablet.ec 02/18/17 This patient is new to me today: No Emergency Visit: No Critical Care patient: No - Discharge Referral Referred to [facility] Med [facility] No
[2017-02-18 19:07] VITALS: BP 136/74; PULSE 68; TEMP 98
--- NOTE | 2017-02-18 19:33 | PN ---
Teaching Attending Note Name of Resident: Vanna Khan ATTENDING PHYSICIAN STATEMENT I saw and evaluated the patient. I reviewed the resident's note and discussed the case with the resident. I agree with the resident's findings and plan as documented. SUBJECTIVE: Patient is feeling better today , her pre and post exercise o2 91% and 97% on RA OBJECTIVE: Vital Signs Temperature 98 F 02/18/17 18:00 Pulse Rate 68 02/18/17 18:00 Respiratory Rate 18 02/18/17 18:00 Blood Pressure 136/74 02/18/17 18:00 O2 Sat by Pulse Oximetry (%) 100 02/18/17 12:11 CBCD WBC 5.8 K/mm3 (4.0-10.0) D 02/18/17 08:00 RBC 3.61 M/mm3 (3.60-5.2) 02/18/17 08:00 Hgb 10.8 GM/dL (10.7-15.3) 02/18/17 08:00 Hct 32.6 % (32.4-45.2) 02/18/17 08:00 MCV 90.4 fl (80-96) 02/18/17 08:00 MCHC 33.2 g/dl (32.0-36.0) 02/18/17 08:00 RDW 13.5 % (11.6-15.6) 02/18/17 08:00 Plt Count 208 K/MM3 (134-434) 02/18/17 08:00 MPV 7.7 fl (7.5-11.1) 02/18/17 08:00 CMP Sodium 142 mmol/L (136-145) 02/18/17 08:00 Potassium 3.7 mmol/L (3.5-5.1) 02/18/17 08:00 Chloride 104 mmol/L (98-107) 02/18/17 08:00 Carbon Dioxide 31 mmol/L (21-32) 02/18/17 08:00 Anion Gap 7 (8-16) L 02/18/17 08:00 BUN 12 mg/dL (7-18) 02/18/17 08:00 Creatinine 1.3 mg/dL (0.55-1.02) H 02/18/17 08:00 Creat Clearance w eGFR 43.68 (>60) 02/17/17 06:00 Random Glucose 110 mg/dL (74-106) H 02/18/17 08:00 Calcium 9.1 mg/dL (8.5-10.1) 02/18/17 08:00 Total Bilirubin 0.5 mg/dL (0.2-1.0) 02/17/17 06:00 AST 20 U/L (15-37) 02/17/17 06:00 ALT 22 U/L (12-78) 02/17/17 06:00 Alkaline Phosphatase 91 U/L (45-117) 02/17/17 06:00 Total Protein 6.5 g/dl (6.4-8.2) 02/17/17 06:00 Albumin 3.5 g/dl (3.4-5.0) 02/17/17 06:00 Home Medications Medication Instructions Recorded Acetaminophen W/ Codeine #3 1 tab PO BID 02/11/17 [Tylenol # 3 -] Amlodipine Besylate 10 mg PO DAILY 02/11/17 Aspirin [Ecotrin] 81 mg PO DAILY 02/11/17 Atorvastatin Ca [Lipitor] 80 mg PO HS 02/11/17 Clonidine HCl 0.1 mg PO HS 02/11/17 Hydrochlorothiazide 50 mg PO DAILY 02/11/17 Loratadine 10 mg PO DAILY 02/11/17 Metoprolol Succinate [Toprol XL -] 75 mg PO HS 02/11/17 Paroxetine HCl [Paxil] 40 mg PO DAILY 02/11/17 Quinapril HCl [Accupril -] 40 mg PO BID 02/11/17 Pantoprazole Sodium [Protonix -] 40 mg PO HS #30 tablet.ec 02/18/17 PE: comfortable, with no acute distress. CHESt: CTABL Heart:S1S2 positive abdomen: soft, NT ext: pulses are positive ASSESSMENT AND PLAN: Patient is a 76 F with pmhx of L. hip OA, HTN, Depression, HLD was transferred from [facility] due to possible having aspiration Pneumonia right before the procedure for left hip placement. The procedure was discontinued. # Acute Hypoxia improved was suggested to continue incentive spirometer and reduce the dose of pain medication, discussed with in detail regarding her pain medication. Patient needs low dose pain meds since will affect her breathing explained to the patient in detail. Continue incentive spirometer. Follow with in his office for Pulmonary function test. Patiwent o2 saturation on RA pre and post ambulation 91 and 97%. # OA of Left hip, Sx needs to be rescheduled and pulmonary clearance prior to surgery . Patient is aware. # OA Left Hip needing surgical replacement. Pain Control # HTN continue Home meds # hx of Depression continue home meds. discharge patient home and was suggested to talk to regarding her pain medication.
--- NOTE | 2017-02-18 22:13 | PN ---
Progress Note (short form) - Note Progress Note: Pain well controlled. No acute events overnight. All labs & vitals reviewed. PE: AAO x 3, NAD. L Hip Exam: At baseline. A/P: 76F doing well s/p aborted L SASKIA 02/16/2017 d/t aspiration of gastric hyper -secretions before case began. -Pain control. -Incentive spirometry; aggressive pulmonary toilet. -Mechanical DVT PPx. -PT/OT/Rehab, OOB. -WBAT B/L LE. -Care per primary medical teams. -f/u GI & pulmonary team rec's. -Discharge planning.
== END 2017-02-18 19:14 | disposition home or self-care (01) | DRG 553 ==
LOC: FM/S 11:42 → JICU 20:30 → J8W 02-17 17:19
PROVIDERS: ADMIT Orthopaedic Surgery Orthopaedic Surgery of the Spine; ATTEND Internal Medicine
PROC: 0BH17EZ Insertion of Endotracheal Airway into Trachea, Via Natural or Artificial Opening (ICD-10-PCS; principal; 2017-02-16 13:30)
DX: M16.12 Unilateral primary osteoarthritis, left hip (principal); J69.0 Pneumonitis due to inhalation of food and vomit; J95.89 Other postprocedural complications and disorders of respiratory system, not elsewhere classified; R09.02 Hypoxemia; I12.9 Hypertensive chronic kidney disease with stage 1 through stage 4 chronic kidney disease, or unspecified chronic kidney disease; N18.3 Chronic kidney disease, stage 3 (moderate); E78.5 Hyperlipidemia, unspecified; F32.89 Other specified depressive episodes; Y83.8 Other surgical procedures as the cause of abnormal reaction of the patient, or of later complication, without mention of misadventure at the time of the procedure; K21.9 Gastro-esophageal reflux disease without esophagitis; E66.8 Other obesity; Z68.31 Body mass index [BMI] 31.0-31.9, adult; Z87.891 Personal history of nicotine dependence; Z86.73 Personal history of transient ischemic attack (TIA), and cerebral infarction without residual deficits; Z53.8 Procedure and treatment not carried out for other reasons
CPT/HCPCS: 36415; 71010-TC; 80048; 80053; 85025; 94002; 94640; 94760; 94761; J1644

== ENCOUNTER 2017-05-27 06:00 | Inpatient (IN) | payer BC ==
[2017-05-26 10:35] VITALS: BMI 28.3
[2017-05-27] MEDS ORDERED: BUPIVACAINE HCL/PF (5 MG/ML) 30 ML VIAL IJ ONE ×2 (07:23→08:34)
[2017-05-27] MEDS ORDERED: MIDAZOLAM HCL 2 MG/2 ML SINGLE DOSE VIAL ONE ×2 (07:23→11:56)
[2017-05-27] MEDS ORDERED: VANCOMYCIN 1,000 MG VIAL (RESTRICTED TO ID ONLY) ONE ×2 (09:09→12:47)
[2017-05-27] MEDS ORDERED: ceFAZolin SODIUM 1 GM VIAL ONE ×2 (09:09→12:04)
[2017-05-27] MEDS ORDERED: TRANEXAMIC ACID 1000 MG/10 ML VIAL ONE (09:09)
[2017-05-27] MEDS ORDERED: CEFAZOLIN 2 GM/D5W 2 GM/50 ML ML IVPB ONE (09:14)
[2017-05-27] MEDS ORDERED: TRANEXAMIC ACID 1000 MG/10 ML VIAL IVPUSH ONE (09:14)
[2017-05-27] MEDS ORDERED: VANCOMYCIN 1 GRAM (PRE-DOCKED) 1,000 MG/250 ML BAG IVPB ONE ×2 (09:14→22:30)
[2017-05-27] MEDS ORDERED: PROPOFOL 20 ML ONE ×3 (09:21→12:09)
[2017-05-27] MEDS ORDERED: ePHEDrine SULFATE 50 MG/1 ML AMPULE ONE (09:33)
[2017-05-27] MEDS ORDERED: VANCOMYCIN 1,000 MG VIAL (RESTRICTED TO ID ONLY) IVPB ONE (12:28)
[2017-05-27] MEDS ORDERED: BENZOIN/ALOE VERA/STORAX/TOLU 58 ML BOTTLE ONE (12:47)
[2017-05-27] MEDS ORDERED: ONDANSETRON 4 MG/2 ML VIAL IVPUSH PRN (13:03)
[2017-05-27] MEDS ORDERED: MAGNESIUM HYDROX 2400MG/30ML ORAL SUSPENSION 30 ML CUP PO PRN (13:03)
[2017-05-27] MEDS ORDERED: MAG HYDROX/AL HYDROX/SIMETH 30 ML UNIT-DOSE CUP PO PRN (13:03)
[2017-05-27] MEDS ORDERED: LACTATED RINGERS SOLUTION 1,000 ML IV SCH ×2 (13:15)
--- NOTE | 2017-05-27 13:25 | OP ---
Operative Note - Note: Operative Date: 05/27/17 Pre-Operative Diagnosis: left hip osteoarthritis Operation: Left total hip arthroplasty Implants: Oseas Tritanium hemispherical cluster hole shell size 50mm-D. Aurora Torex 6.5mm cancellous bone screw (6.5X25mm). Trident X3 polyethylene insert 36mm-D. Aurora AccoladeII 127 neck size 6, 35mm, 111mm V40. Aurora Biolox delta ceremic femoral head 36mm, -2.5mm Post-Operative Diagnosis: Same as Pre-op Surgeon: Marin Chambers Dormitory Maid: Sherine Painting Anesthesiologist/CHUTE LOADER: Emiliano Torres Anesthesia: Spinal, Local Estimated Blood Loss (mls): 200 Fluid Volume Replaced (mls): 1,600 Operative Report Dictated: Yes
--- NOTE | 2017-05-27 13:27 | SURG ---
Surgery Paper And Prints Restorer Note Paper And Prints Restorer: Sherine Painting PA-C Date of Service: 05/27/17 Diagnosis: left hip OA Procedure: Left total hip arthroplasty I was present for the entirety of the operative procedure. For further detail, please refer to operative report. Visit type - Case Type Case Type: Scheduled Admission - Emergency Emergency Visit: No - New patient This patient is new to me today: Yes Date on this admission: 05/27/17
[2017-05-27] MEDS: ACETAMINOPHEN 1000 MG/100 ML VIAL (NON FORMULARY) IVPB ONE ×2 (13:30→15:40)
[2017-05-27] MEDS: oxyCODONE HCL 5 MG TABLET PO PRN ×3 (15:34→23:09)
--- NOTE | 2017-05-27 15:39 | PN ---
Progress Note (short form) - Note Progress Note: 76F s/p L SASKIA POD #0. -Pain control as per anaesthesia team. -DVT PPx: - Mechanical: RAFA's, SCD's. - Chemical: ASA EC 81mg PO BID x 6 weeks. -Incentive spirometry; aggressive pulmonary toilet. -PT/OT/Rehab, OOB. -WBAT LLE. -L hip precautions. -Maintain hip abduction pillow in bed and chair. -f/u post-op TOV. -Blanca-op Abx. x 24 hrs: Ancef, Vancomycin. -Diet as tolerated. -Care as per medical hospitalist team. -f/u AM labs. -Discharge planning. -Will follow. Marin Chambers MD (Orthopaedic Surgery).
[2017-05-27] MEDS: SODIUM CHLORIDE 1,000 ML IV SCH (15:40)
[2017-05-27] MEDS: NIACIN 500 MG TABLET PO SCH (15:45)
[2017-05-27] MEDS: INSULIN SLIDING SCALE (NOVOLOG) 1 VIAL SQ SCH (17:18)
[2017-05-27] MEDS ORDERED: HYDROmorphone HCL CARPU-JECT 2 MG/1 ML DISP.SYRIN IVPB ONE (17:38)
[2017-05-27] MEDS: CEFAZOLIN 1 GM/D5W 1 GM/50 ML BAG IVPB SCH (20:26)
--- NOTE | 2017-05-27 21:48 | CONSULT ---
Consult Consult Specialty:: Hospital Medicine Referred by:: Dr. Chambers - Past Medical History BUSINESS PROJECT MANAGER: Yes: CVA Cardio/Vascular: Yes: HTN, Hyperlipdemia Renal/: Yes: Other (CKD3) Psych: Yes: Depression Musculoskeletal: Yes: Osteoarthritis - Alcohol/Substance Use Hx Alcohol Use: Yes ("ONCE IN A WHILE") - Smoking History Smoking history: Former smoker Have you smoked in the past 12 months: No If you are a former smoker, when did you quit?: 07/12 - Social History Usual Living Arrangement: With Child Home Medications - Allergies Allergies/Adverse Reactions: Allergies Allergy/AdvReac Type Severity Reaction Status Date / Time Sulfa (Sulfonamide Allergy Unknown UNKNOWN Verified 05/26/17 10:13 Antibiotics) - Home Medications Home Medications: Ambulatory Orders Acetaminophen W/ Codeine #3 [Tylenol # 3 -] 1 tab PO BID 02/11/17 Amlodipine Besylate 10 mg PO DAILY 02/11/17 Aspirin [Ecotrin] 81 mg PO DAILY 02/11/17 Clonidine HCl 0.1 mg PO HS 02/11/17 Loratadine 10 mg PO DAILY 02/11/17 Metoprolol Succinate [Toprol XL -] 75 mg PO HS 02/11/17 Paroxetine HCl [Paxil] 40 mg PO DAILY 02/11/17 Quinapril HCl [Accupril -] 40 mg PO BID 02/11/17 Pantoprazole Sodium [Protonix -] 40 mg PO HS #30 tablet.ec 02/18/17 Garlic 1 each PO DAILY 05/26/17 Lecithin, Soy [Lecithin] 1,200 mg PO DAILY 05/26/17 Niacin [Niacin ER] 1,000 mg PO DAILY 05/26/17 [place]-3 Fatty Acids [[place]-3] 1,000 mg PO DAILY 05/26/17 Physical Exam Vital Signs: Vital Signs Temperature 99.4 F 05/27/17 17:55 Pulse Rate 89 05/27/17 17:55 Respiratory Rate 18 05/27/17 19:55 Blood Pressure 147/98 05/27/17 17:55 O2 Sat by Pulse Oximetry (%) 98 05/27/17 19:55
[2017-05-27] MEDS ORDERED: GABAPENTIN 300 MG CAPSULE (FP) PO SCH (22:00)
[2017-05-27] MEDS ORDERED: ASPIRIN 325 MG TABLET PO SCH (22:00)
[2017-05-27] MEDS: cloNIDine HCL 0.1 MG TABLET PO SCH (22:24)
[2017-05-27] MEDS: GABAPENTIN 300 MG CAPSULE (FP) PO SCH (22:25)
[2017-05-27] MEDS: metoPROLOL SUCCINATE 25 MG TAB.SR.24H (FP) PO SCH (22:25)
[2017-05-27] MEDS: QUINAPRIL HCL 20 MG TABLET (FP) PO SCH (22:25)
[2017-05-27] MEDS: SENNOSIDES/DOCUSATE COMBO (SENNA PLUS) TABLET (UD) PO SCH (22:26)
[2017-05-27] MEDS: PANTOPRAZOLE 40 MG TABLET (FP) PO SCH (22:26)
[2017-05-28] MEDS ORDERED: LORazepam 2 MG/ML SDV VIAL ONE (01:49)
[2017-05-28] MEDS ORDERED: LORazepam 2 MG/ML SDV VIAL IVPUSH ONE (01:51)
[2017-05-28] MEDS: CEFAZOLIN 1 GM/D5W 1 GM/50 ML BAG IVPB SCH (01:59)
[2017-05-28] MEDS: ACETAMINOPHEN 325 MG TABLET (FP) PO PRN (06:00)
[2017-05-28] MEDS: oxyCODONE HCL 5 MG TABLET PO PRN (06:16)
[2017-05-28] MEDS: INSULIN SLIDING SCALE (NOVOLOG) 1 VIAL SQ SCH ×3 (06:17→17:31)
[2017-05-28 08:13] LABS: HEMOGLOBIN 10.3 GM/dl (10.7-15.3); MCH 30.5 pg (25.7-33.7); MCHC 34.4 g/dl (32.0-36.0); MEAN CELL VOLUME 88.7 fl (80-96); MEAN PLT VOLUME 7.1 fl (7.5-11.1); PLATELET COUNT 255 K/MM3 (134-434); RBC 3.38 M/mm3 (3.60-5.2); RDW 13.2 % (11.6-15.6)
[2017-05-28 08:55] LABS: ANION GAP 7 (8-16); BLOOD UREA NITROGEN 21 mg/dl (7-18); CALCIUM 9.1 mg/dl (8.4-10.2); CHLORIDE 101 mmol/L (98-107); CO2 27 mmol/L (22-28); CREATININE 1.4 mg/dl (0.6-1.3); GLUCOSE,RANDOM 132 mg/dl (74-106); POTASSIUM 4.6 mmol/L (3.5-5.1); SODIUM 135 mmol/L (136-145)
[2017-05-28] MEDS: SENNOSIDES/DOCUSATE COMBO (SENNA PLUS) TABLET (UD) PO SCH ×2 (09:35→21:31)
[2017-05-28] MEDS: GABAPENTIN 300 MG CAPSULE (FP) PO SCH ×2 (09:35→21:30)
[2017-05-28] MEDS: PARoxetine HCL 20 MG TABLET (FP) PO SCH (09:36)
[2017-05-28] MEDS: NIACIN 500 MG TABLET PO SCH (09:37)
[2017-05-28] MEDS: QUINAPRIL HCL 20 MG TABLET (FP) PO SCH ×2 (09:38→23:26)
[2017-05-28] MEDS: LORATADINE 10 MG TABLET PO SCH (09:38)
[2017-05-28] MEDS: amLODIPine BESYLATE 10 MG TABLET (FP) PO SCH ×2 (09:39→09:43)
[2017-05-28] MEDS ORDERED: MULTIVITAMINS (DAILY MVI) TABLET (FP) PO SCH (10:00)
[2017-05-28] MEDS ORDERED: PANTOPRAZOLE 40 MG TABLET (FP) PO SCH (10:00)
[2017-05-28] MEDS ORDERED: ASPIRIN 325 MG TABLET PO SCH (10:00)
--- NOTE | 2017-05-28 13:07 | PN ---
Physical Exam: SUBJECTIVE: Patient seen and examined this AM. She is AAOx 3 but uncomfortable with right thigh pain s/p right hip replacement POD 1. Her daughter is present and her mom was uncomfortable and restless last night. OBJECTIVE: Vital Signs Period Temp Pulse Resp BP Sys/Hicks Pulse Ox Last 24 Hr 97.6 F-99.4 F 65-89 2-20 110-168/64-98 96-100 GENERAL: The patient is awake, alert, and fully oriented, in no acute distress but with + pain to the right hip HEAD: Normal with no signs of trauma. LUNGS: Breath sounds equal, clear to auscultation bilaterally, HEART: Regular rate and rhythm, S1, S2 without murmur, rub or gallop. ABDOMEN: Soft, nontender, nondistended, normoactive bowel sounds, EXTREMITIES: 2+ pulses, warm, well-perfused, no edema, with + RAFA stockings, + SCD on, right hip pain s/p surgery. NEUROLOGICAL: Cranial nerves II through XII grossly intact. Normal speech, gait not observed. PSYCH: Normal mood, normal affect. SKIN: Warm, dry, normal turgor, no rashes or lesions noted Laboratory Results - last 24 hr 05/27/17 05/27/17 05/28/17 14:00 17:16 06:06 WBC RBC Hgb Hct MCV MCH MCHC RDW Plt Count MPV Sodium Potassium Chloride Carbon Dioxide Anion Gap BUN Creatinine POC Glucometer 128 159 134 Random Glucose Calcium 05/28/17 05/28/17 05/28/17 08:04 08:04 11:52 WBC 9.0 RBC 3.38 L Hgb 10.3 L Hct 30.0 L MCV 88.7 MCH 30.5 MCHC 34.4 RDW 13.2 Plt Count 255 MPV 7.1 L Sodium 135 L Potassium 4.6 Chloride 101 Carbon Dioxide 27 Anion Gap 7 L BUN 21 H Creatinine 1.4 H POC Glucometer 120 Random Glucose 132 H Calcium 9.1 Active Medications Generic Name Dose Route Start Last Admin Trade Name Freq PRN Reason Stop Dose Admin Acetaminophen 650 mg 05/27/17 17:39 05/28/17 06:00 Tylenol - PO 650 mg Q4H PRN Administration PAIN Al Hydroxide/Mg Hydroxide 30 ml 05/27/17 13:03 Mylanta Oral Suspension - PO Q4H PRN DYSPEPSIA Amlodipine Besylate 10 mg 05/28/17 10:00 05/28/17 09:43 Norvasc - PO Not Given DAILY [facility] Aspirin 81 mg 05/28/17 10:00 05/28/17 09:37 Asa - PO 81 mg BID [facility] Administration Clonidine 0.1 mg 05/27/17 22:00 05/27/17 22:24 Catapres - PO 0.1 mg HS [facility] Administration Fentanyl 50 mcg 05/27/17 13:29 05/27/17 13:40 Sublimaze Injection - IVPUSH 50 mcg [id number] PRN Administration PAIN-PACU ORDER X 4 DOSES ONLY Gabapentin 300 mg 05/27/17 22:00 05/28/17 09:35 Neurontin - PO 300 mg BID [facility] Administration Sodium Chloride 1,000 mls @ 100 mls/hr 05/27/17 13:30 05/27/17 15:40 Normal Saline - IV Not Given ASDIR [facility] Insulin Aspart 1 vial 05/27/17 16:30 05/28/17 12:01 Novolog Vial Sliding Scale - SQ Not Given [facility] Protocol Loratadine 10 mg 05/28/17 10:00 05/28/17 09:38 Claritin - PO 10 mg DAILY [facility] Administration Magnesium Hydroxide 30 ml 05/27/17 13:03 Milk Of Magnesia - PO PRN PRN CONSTIPATION Metoprolol Succinate 75 mg 05/27/17 22:00 05/27/17 22:25 Toprol Xl - PO 75 mg HS [facility] Administration Niacin 1,000 mg 05/27/17 15:45 05/28/17 09:37 Niacin PO 1,000 mg DAILY [facility] Administration Ondansetron HCl 4 mg 05/27/17 13:03 05/27/17 13:45 Zofran Injection IVPUSH 4 mg Q6H PRN Administration NAUSEA Oxycodone HCl 5 mg 05/27/17 13:29 05/27/17 16:24 Roxicodone - PO 5 mg Q3H PRN Administration PAIN LEVEL 1-5 Oxycodone HCl 10 mg 05/27/17 13:29 05/28/17 06:16 Roxicodone - PO 10 mg Q3H PRN Administration PAIN LEVEL 6-10 Pantoprazole Sodium 40 mg 05/27/17 22:00 05/27/17 22:26 Protonix - PO 40 mg HS [facility] Administration Paroxetine HCl 40 mg 05/28/17 10:00 05/28/17 09:36 Paxil - PO 40 mg DAILY [facility] Administration Quinapril HCl 40 mg 05/27/17 22:00 05/28/17 09:38 Accupril - PO 40 mg BID [facility] Administration Senna/Docusate Sodium 2 tablet 05/27/17 22:00 05/28/17 09:35 Pericolace - PO 2 tablet BID [facility] Administration ASSESSMENT/PLAN: This 76 yr old female s/p right hip replacement POD 1 1. HTN -continue on home meds, norvasc, clonidine, toprol xl, accupril -bp stable 2. CVA hx -continue with blood pressure meds -ASA 3. Chronic Kidney Disease St 3 -trend bun/cr -control b/p and glucose levels 4. IDDM -fingersticks and coverage with sliding scale -ADA diet 5. Depression -continue with paxil 6. Osteoarthritis/Hip replacement POD 1 -pain management PRN ordered with stool softners -WBAT per ortho -PT eval -care per ortho Visit type - Emergency Visit Emergency Visit: No - New Patient This patient is new to me today: Yes Date on this admission: 05/28/17 - Critical Care Critical Care patient: No - Discharge Referral Referred to [facility] Med [facility] No
[2017-05-28 16:09] LABS: PH,URINE 5.5 (4.5-8); URINE APPEARANCE Clear; URINE BILIRUBIN Negative (NEGATIVE); URINE BLOOD Negative (NEGATIVE); URINE GLUCOSE (UA) Negative (NEGATIVE); URINE KETONE Trace (NEGATIVE); URINE LEUK ESTERASE Negative (NEGATIVE); URINE NITRITE Negative (NEGATIVE); URINE PROTEIN Negative (NEGATIVE); URINE UROBILINOGEN 0.2 (0.2-1.0)
[2017-05-28 16:10] LABS: URINE COLOR YELLOW
[2017-05-28] MEDS: SODIUM CHLORIDE 1,000 ML IV SCH (17:32)
--- NOTE | 2017-05-28 18:31 | PN ---
Progress Note (short form) - Note Progress Note: POD #2 Patient appears sluggish Mobilising with great difficulty HIP Comfortable Wound dry Minimal pain Vascular No subsartorian or calf tenderness General Orientated Vitals stable CVS Stable Abd Soft Appears unwell. Not ready for discharge. If no improvment for full medical assessment Plan Pt Mobilize FWBAT DVT Prophylaxis Aspirin Reevaluate tomorrow.
[2017-05-28] MEDS: PANTOPRAZOLE 40 MG TABLET (FP) PO SCH (21:29)
[2017-05-28] MEDS: metoPROLOL SUCCINATE 25 MG TAB.SR.24H (FP) PO SCH (21:30)
[2017-05-28] MEDS: cloNIDine HCL 0.1 MG TABLET PO SCH (21:30)
[2017-05-28] MEDS: ASPIRIN COATED 81 MG TABLET.EC PO SCH (21:46)
[2017-05-28] MEDS ORDERED: PT OWN MED DRAWER 7, Y5N ONE (23:25)
[2017-05-29] MEDS: ACETAMINOPHEN 325 MG TABLET (FP) PO PRN ×2 (05:57→21:44)
[2017-05-29] MEDS: oxyCODONE HCL 5 MG TABLET PO PRN ×2 (06:01→21:44)
[2017-05-29] MEDS: INSULIN SLIDING SCALE (NOVOLOG) 1 VIAL SQ SCH ×3 (07:45→18:17)
[2017-05-29 09:42] LABS: BASO % 0.3 % (0-2.0); EOS % 0.7 % (0-4.5); HEMATOCRIT 26.5 % (32.4-45.2); HEMOGLOBIN 9.2 GM/dl (10.7-15.3); LYMPH % 19.4 % (8-40); MCH 30.6 pg (25.7-33.7); MCHC 34.5 g/dl (32.0-36.0); MEAN CELL VOLUME 88.7 fl (80-96); MEAN PLT VOLUME 8.1 fl (7.5-11.1); MONO % 8.1 % (3.8-10.2); NEUT % 71.5 % (42.8-82.8); PLATELET COUNT 208 K/MM3 (134-434); RBC 2.99 M/mm3 (3.60-5.2); RDW 13.3 % (11.6-15.6); WHITE BLOOD COUNT 9.4 K/mm3 (4.0-10.8)
[2017-05-29] MEDS: ASPIRIN COATED 81 MG TABLET.EC PO SCH ×2 (10:00→21:42)
[2017-05-29 10:21] LABS: BLOOD UREA NITROGEN 29 mg/dl (7-18); CREATININE 1.7 mg/dl (0.6-1.3); GLUCOSE,RANDOM 121 mg/dl (74-106)
[2017-05-29 10:22] LABS: ALBUMIN 3.1 g/dl (3.5-5.0); ALK PHOS 62 U/L (32-92); ANION GAP 9 (8-16); BILIRUBIN,TOTAL 0.9 mg/dl (0.2-1.0); CALCIUM 8.9 mg/dl (8.4-10.2); CHLORIDE 98 mmol/L (98-107); CO2 25 mmol/L (22-28); POTASSIUM 4.1 mmol/L (3.5-5.1); SGOT/AST 31 U/L (10-42); SGPT/ALT 10 U/L (10-40); SODIUM 132 mmol/L (136-145); TOT PROT 5.8 g/dl (6.4-8.3)
[2017-05-29] MEDS: QUINAPRIL HCL 20 MG TABLET (FP) PO SCH (11:21)
[2017-05-29] MEDS: LORATADINE 10 MG TABLET PO SCH (11:22)
[2017-05-29] MEDS: GABAPENTIN 300 MG CAPSULE (FP) PO SCH ×2 (11:22→21:43)
--- NOTE | 2017-05-29 11:31 | PN ---
Progress Note (short form) - Note Progress Note: POD#3 Seems more alert and sitting in a chair Oxygen sats 72 on nasal canula Vitals stable Poor ability to mobilize Only medical suspicion is concern for ?PE Wound Dry No calf or subsartorian tenderness Neuro [employer] [place] and periphery grossly intact PLAN For Chest XRAY Routine bloods include ABG Relayed to the nurse Continue low level pain meds PT Attempt mobilization If no improvement by tomorrow for spiral CT Chest
--- NOTE | 2017-05-29 12:11 | PN ---
Progress Note (short form) - Note Progress Note: 1Month Hx of difficulty walking with spontaneous onset pain in R groin radiating into the thigh. No back or abdominal pain No pain on vasalva Diabetic O/E Awake in no distress Lying with diaper in situ and with R hip flexed 30 degrees and external rotation I can rotate his limb with minimal discomfort ROM passive 30-60 Unable to actively SLR due to pain in the root of the limb. T apyrexial Review of all investigations FADI Staph likely coagulase negative as all scans reveal no loculations.Cultures of the hip and bone confirm this. 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 repeat ve staph On IV antibiotics PLAN Will repeat MRI ?tomorrow or as clinical picture evolves looking for loculations At present Iand D of hip pointless as it will reaccumulate due to the bony involvement and his hip signs clinicaly not in keeping with an acute septic arthritis. As this has been going on for a month chondrolysis of the joint has already occurred. Treat with Nutritional and general measure support nurseing etc IV antibiotics to continue titrated to culture sensitivity PT mobilization only as tolerated Review for purulent abscess collectoins and definitive hip treatment but timing of this is crucial. Not yet!!! Review tomorrow ? Repeat MRI MRI root of limb and pelvis. Observe belly and retroperitoneum and will consider a White cell nuclear scan searching for infection afar. The hip AND femur may require orthopaedic managemn. ie [place] with debridement reaming and irrigation PMMA antibiotic spacers and 6 wks traction.
[2017-05-29] MEDS: NIACIN 500 MG TABLET PO SCH (13:52)
[2017-05-29] MEDS: amLODIPine BESYLATE 10 MG TABLET (FP) PO SCH (13:52)
[2017-05-29] MEDS: PARoxetine HCL 20 MG TABLET (FP) PO SCH (13:53)
[2017-05-29] MEDS: SODIUM CHLORIDE 1,000 ML IV SCH (13:53)
[2017-05-29] MEDS: SENNOSIDES/DOCUSATE COMBO (SENNA PLUS) TABLET (UD) PO SCH ×2 (13:53→21:44)
--- NOTE | 2017-05-29 14:19 | PN ---
Physical Exam: SUBJECTIVE: Patient seen and examined. She has been oob to chair tolerating, now returned to bed. Overall pt feels better and pain is improved. When she is moved her pain in more. She is awake now and had lunch conversational Events: - Febrile tmax 102.7 this am - somnolent - hypotensive OBJECTIVE: Vital Signs Period Temp Pulse Resp BP Sys/Hicks Pulse Ox Last 24 Hr 99.1 F-102.7 F 69-86 14-20 92-139/46-91 96-98 PE Neuro: alert, awake, cn 2-12intact Pulm: L base crackles CV: s1 s2 rrr no mrg Abd: s nt nd + bs MSK L hip dressing CDI + tenderness to palpation Ext: trace le edema Laboratory Results - last 24 hr 05/28/17 05/28/17 05/29/17 15:30 17:24 06:00 WBC RBC Hgb Hct MCV MCH MCHC RDW Plt Count MPV Neutrophils % Lymphocytes % Monocytes % Eosinophils % Basophils % PTT (Actin FS) 27.5 Sodium Potassium Chloride Carbon Dioxide Anion Gap BUN Creatinine Creat Clearance w eGFR POC Glucometer 125 Random Glucose Calcium Total Bilirubin AST ALT Alkaline Phosphatase Total Protein Albumin Urine Color Yellow Urine Appearance Clear Urine pH 5.5 Ur Specific [place] 1.020 Urine Protein Negative Urine Glucose (UA) Negative Urine Ketones Trace Urine Blood Negative Urine Nitrite Negative Urine Bilirubin Negative Urine Urobilinogen 0.2 Ur Leukocyte Esterase Negative 05/29/17 05/29/17 05/29/17 06:00 06:00 07:43 WBC 9.4 RBC 2.99 L Hgb 9.2 L D Hct 26.5 L MCV 88.7 MCH 30.6 MCHC 34.5 RDW 13.3 Plt Count 208 MPV 8.1 Neutrophils % 71.5 Lymphocytes % 19.4 Monocytes % 8.1 Eosinophils % 0.7 Basophils % 0.3 PTT (Actin FS) Sodium 132 L Potassium 4.1 Chloride 98 Carbon Dioxide 25 Anion Gap 9 BUN 29 H D Creatinine 1.7 H D Creat Clearance w eGFR 29.22 POC Glucometer 132 Random Glucose 121 H Calcium 8.9 Total Bilirubin 0.9 AST 31 ALT 10 Alkaline Phosphatase 62 Total Protein 5.8 L Albumin 3.1 L Urine Color Urine Appearance Urine pH Ur Specific [place] Urine Protein Urine Glucose (UA) Urine Ketones Urine Blood Urine Nitrite Urine Bilirubin Urine Urobilinogen Ur Leukocyte Esterase Active Medications Generic Name Dose Route Start Last Admin Trade Name Freq PRN Reason Stop Dose Admin Acetaminophen 650 mg 05/27/17 17:39 05/29/17 05:57 Tylenol - PO 650 mg Q4H PRN Administration PAIN Al Hydroxide/Mg Hydroxide 30 ml 05/27/17 13:03 Mylanta Oral Suspension - PO Q4H PRN DYSPEPSIA Amlodipine Besylate 10 mg 05/28/17 10:00 05/29/17 13:52 Norvasc - PO Not Given DAILY [facility] Aspirin 81 mg 05/28/17 22:00 05/29/17 10:00 Ecotrin - PO 81 mg BID [facility] Administration Clonidine 0.1 mg 05/27/17 22:00 05/28/17 21:30 Catapres - PO 0.1 mg HS [facility]ENN[facility]ER Administration Fentanyl 50 mcg 05/27/17 13:29 05/27/17 13:40 Sublimaze Injection - IVPUSH 50 mcg [id number] PRN Administration PAIN-PACU ORDER X 4 DOSES ONLY Gabapentin 300 mg 05/27/17 22:00 05/29/17 11:22 Neurontin - PO Not Given BID [facility] Sodium Chloride 1,000 mls @ 100 mls/hr 05/27/17 13:30 05/29/17 13:53 Normal Saline - IV 100 mls/hr ASDIR [facility] Administration Insulin Aspart 1 vial 05/27/17 16:30 05/29/17 07:45 Novolog Vial Sliding Scale - SQ Not Given TIDAC [facility] Protocol Loratadine 10 mg 05/28/17 10:00 05/29/17 11:22 Claritin - PO Not Given DAILY [facility] Magnesium Hydroxide 30 ml 05/27/17 13:03 Milk Of Magnesia - PO PRN PRN CONSTIPATION Metoprolol Succinate 75 mg 05/27/17 22:00 05/28/17 21:30 Toprol Xl - PO 75 mg HS [facility] Administration Niacin 1,000 mg 05/27/17 15:45 05/29/17 13:52 Niacin PO Not Given DAILY [facility] Ondansetron HCl 4 mg 05/27/17 13:03 05/27/17 13:45 Zofran Injection IVPUSH 4 mg Q6H PRN Administration NAUSEA Oxycodone HCl 5 mg 05/27/17 13:29 05/29/17 06:01 Roxicodone - PO 5 mg Q3H PRN Administration PAIN LEVEL 1-5 Oxycodone HCl 10 mg 05/27/17 13:29 05/28/17 06:16 Roxicodone - PO 10 mg Q3H PRN Administration PAIN LEVEL 6-10 Pantoprazole Sodium 40 mg 05/27/17 22:00 05/28/17 21:29 Protonix - PO 40 mg HS [facility] Administration Paroxetine HCl 40 mg 05/28/17 10:00 05/29/17 13:53 Paxil - PO Not Given DAILY [facility] Quinapril HCl 40 mg 05/27/17 22:00 05/29/17 11:21 Accupril - PO Not Given BID [facility] Senna/Docusate Sodium 2 tablet 05/27/17 22:00 05/29/17 13:53 Pericolace - PO Not Given BID [facility]ENN[facility]ER Assessment: 76 year old female s/p right hip replacement 05/27/17 Plan: 1. Fever - Likely post op atelectasis - CXR negative - Blood cx and urine cx pending 2. Osteoarthritis/Hip replacement 05/27 - Post op care per ortho - To complete post op abx - ASA BID x6 weeks 3. Hypotensive - Improved with fluids this AM, decrease wts 4. HTN - Norvasc, clonidine, toprol xl, accupril with holding parameters 5. FAITH on CKD - Cr increase possibly due to hypotension - UA wnl - Stop AYAD - Decrease fluids NS 50cc/hr 6. CVA hx - ASA 7. DM II - BGM, ISS ACHS 8. Depression - Continue paxil, hold for lethargy Visit type - Emergency Visit Emergency Visit: Yes ED Registration Date: 05/27/17 Care time: The patient presented to the Emergency Department on the above date and was hospitalized for further evaluation of their emergent condition. - New Patient This patient is new to me today: Yes Date on this admission: 05/29/17 - Critical Care Critical Care patient: No
[2017-05-29] MEDS ORDERED: SODIUM CHLORIDE 1,000 ML IV SCH (14:21)
[2017-05-29] MEDS ORDERED: QUINAPRIL HCL 20 MG TABLET (FP) PO SCH (14:21)
[2017-05-29 14:28] LABS: INR 1.13 (0.82-1.09); PROTHROMBIN TIME (PATIENT) 12.6 SEC (10.2-13.0)
[2017-05-29] MEDS: PANTOPRAZOLE 40 MG TABLET (FP) PO SCH (21:42)
[2017-05-29] MEDS: cloNIDine HCL 0.1 MG TABLET PO SCH (21:43)
[2017-05-29] MEDS: metoPROLOL SUCCINATE 25 MG TAB.SR.24H (FP) PO SCH (21:43)
[2017-05-30] MEDS: INSULIN SLIDING SCALE (NOVOLOG) 1 VIAL SQ SCH ×4 (06:30→23:46)
[2017-05-30 08:09] LABS: HEMATOCRIT 25.3 % (32.4-45.2); HEMOGLOBIN 8.5 GM/dl (10.7-15.3); MCHC 33.5 g/dl (32.0-36.0); MEAN CELL VOLUME 89.4 fl (80-96); MEAN PLT VOLUME 7.6 fl (7.5-11.1); PLATELET COUNT 228 K/MM3 (134-434); RBC 2.83 M/mm3 (3.60-5.2); RDW 13.3 % (11.6-15.6); WHITE BLOOD COUNT 7.2 K/mm3 (4.0-10.8)
[2017-05-30 08:21] LABS: ALBUMIN 2.6 g/dl (3.5-5.0); ALK PHOS 59 U/L (32-92); ANION GAP 4 (8-16); BILIRUBIN,TOTAL 0.9 mg/dl (0.2-1.0); BLOOD UREA NITROGEN 25 mg/dl (7-18); CALCIUM 8.9 mg/dl (8.4-10.2); CHLORIDE 106 mmol/L (98-107); CO2 28 mmol/L (22-28); CREATININE 1.6 mg/dl (0.6-1.3); GLUCOSE,RANDOM 150 mg/dl (74-106); POTASSIUM 4.2 mmol/L (3.5-5.1); SGOT/AST 23 U/L (10-42); SGPT/ALT 9 U/L (10-40); SODIUM 138 mmol/L (136-145); TOT PROT 5.4 g/dl (6.4-8.3)
[2017-05-30] MEDS ORDERED: PT OWN MED DRAWER 7, Y5N ONE (09:53)
[2017-05-30] MEDS: ACETAMINOPHEN 325 MG TABLET (FP) PO PRN (10:07)
[2017-05-30] MEDS: PARoxetine HCL 20 MG TABLET (FP) PO SCH (10:07)
[2017-05-30] MEDS: SENNOSIDES/DOCUSATE COMBO (SENNA PLUS) TABLET (UD) PO SCH ×2 (10:07→21:10)
[2017-05-30] MEDS: LORATADINE 10 MG TABLET PO SCH (10:07)
[2017-05-30] MEDS: ASPIRIN COATED 81 MG TABLET.EC PO SCH ×2 (10:07→21:11)
[2017-05-30] MEDS: GABAPENTIN 300 MG CAPSULE (FP) PO SCH ×2 (10:07→21:11)
[2017-05-30] MEDS: amLODIPine BESYLATE 10 MG TABLET (FP) PO SCH (10:08)
[2017-05-30] MEDS: NIACIN 500 MG TABLET PO SCH (10:08)
--- NOTE | 2017-05-30 10:11 | PN ---
Physical Exam: SUBJECTIVE: Patient seen and examined. She is much more alert today, pain improved, did ambulate now in chair. Daughter at bed side OBJECTIVE: Vital Signs Period Temp Pulse Resp BP Sys/Hicks Pulse Ox Last 24 Hr 98.9 F-100.1 F 69-84 14-20 108-140/57-65 97-100 PE Neuro: alert, awake, cn 2-12intact Pulm: scattered basilar crackles CV: s1 s2 rrr no mrg Abd: s nt nd + bs MSK: L hip dressing CDI + wedge in place Ext: warm, no le edema Laboratory Results - last 24 hr 05/29/17 05/29/17 05/29/17 06:00 06:00 11:55 WBC RBC Hgb Hct MCV MCH MCHC RDW Plt Count MPV PT with INR 12.6 INR 1.13 Sodium 132 L Potassium 4.1 Chloride 98 Carbon Dioxide 25 Anion Gap 9 BUN 29 H D Creatinine 1.7 H D Creat Clearance w eGFR 29.22 POC Glucometer 123 Random Glucose 121 H Calcium 8.9 Total Bilirubin 0.9 AST 31 ALT 10 Alkaline Phosphatase 62 Total Protein 5.8 L Albumin 3.1 L 05/30/17 05/30/17 07:05 07:05 WBC 7.2 RBC 2.83 L Hgb 8.5 L Hct 25.3 L MCV 89.4 MCH 30.0 MCHC 33.5 RDW 13.3 Plt Count 228 MPV 7.6 PT with INR INR Sodium 138 Potassium 4.2 Chloride 106 Carbon Dioxide 28 Anion Gap 4 L BUN 25 H Creatinine 1.6 H Creat Clearance w eGFR 31.34 POC Glucometer Random Glucose 150 H D Calcium 8.9 Total Bilirubin 0.9 AST 23 D ALT 9 L Alkaline Phosphatase 59 Total Protein 5.4 L Albumin 2.6 L Active Medications Generic Name Dose Route Start Last Admin Trade Name Freq PRN Reason Stop Dose Admin Acetaminophen 650 mg 05/27/17 17:39 05/30/17 10:07 Tylenol - PO 650 mg Q4H PRN Administration PAIN Al Hydroxide/Mg Hydroxide 30 ml 05/27/17 13:03 Mylanta Oral Suspension - PO Q4H PRN DYSPEPSIA Amlodipine Besylate 10 mg 05/28/17 10:00 05/30/17 10:08 Norvasc - PO 10 mg DAILY [facility] Administration Aspirin 81 mg 05/28/17 22:00 05/30/17 10:07 Ecotrin - PO 81 mg BID [facility] Administration Clonidine 0.1 mg 05/29/17 14:21 05/29/17 21:43 Catapres - PO 0.1 mg HS [facility] Administration Fentanyl 50 mcg 05/27/17 13:29 05/27/17 13:40 Sublimaze Injection - IVPUSH 50 mcg [id number] PRN Administration PAIN-PACU ORDER X 4 DOSES ONLY Gabapentin 300 mg 05/27/17 22:00 05/30/17 10:07 Neurontin - PO 300 mg BID [facility] Administration Sodium Chloride 1,000 mls @ 50 mls/hr 05/29/17 14:21 05/29/17 14:40 Normal Saline - IV 50 mls/hr ASDIR [facility] Administration Insulin Aspart 1 vial 05/29/17 16:30 05/30/17 06:30 Novolog Vial Sliding Scale - SQ Not Given ACHS [facility] Protocol Loratadine 10 mg 05/28/17 10:00 05/30/17 10:07 Claritin - PO 10 mg DAILY [facility] Administration Magnesium Hydroxide 30 ml 05/27/17 13:03 Milk Of Magnesia - PO PRN PRN CONSTIPATION Metoprolol Succinate 75 mg 05/29/17 14:21 05/29/17 21:43 Toprol Xl - PO 75 mg HS [facility] Administration Niacin 1,000 mg 05/27/17 15:45 05/30/17 10:08 Niacin PO 1,000 mg DAILY [facility] Administration Ondansetron HCl 4 mg 05/27/17 13:03 05/27/17 13:45 Zofran Injection IVPUSH 4 mg Q6H PRN Administration NAUSEA Oxycodone HCl 5 mg 05/27/17 13:29 05/29/17 21:44 Roxicodone - PO 5 mg Q3H PRN Administration PAIN LEVEL 1-5 Oxycodone HCl 10 mg 05/27/17 13:29 05/28/17 06:16 Roxicodone - PO 10 mg Q3H PRN Administration PAIN LEVEL 6-10 Pantoprazole Sodium 40 mg 05/27/17 22:00 05/29/17 21:42 Protonix - PO 40 mg HS [facility]ENN[facility] Administration Paroxetine HCl 40 mg 05/28/17 10:00 05/30/17 10:07 Paxil - PO 40 mg DAILY [facility] Administration Senna/Docusate Sodium 2 tablet 05/27/17 22:00 05/30/17 10:07 Pericolace - PO 2 tablet BID [facility] Administration Microbiology 05/28/17 15:30 Urine - Urine - Catheterized Urine Culture - Final NO GROWTH OBTAINED Assessment: 76 year old female s/p right hip replacement 05/27/17 Plan: 1. Fever - Low grade this AM - Likely post op atelectasis - Blood, urine pending 2. Osteoarthritis/Hip replacement 05/27 - Post op care per ortho - To complete post op abx - ASA BID x6 weeks 3. HTN - Norvasc, clonidine, toprol xl, with holding parameters - Hold Accupril 4. FAITH on CKD - Cr marginal improvement - Change fluids 1/2 NS 50cc/hr - Hold AYAD 5. CVA hx - ASA 6. DM II - BGM, ISS ACHS 7. Depression - Continue paxil, hold for lethargy Dispo: - For SNF if cr improved Visit type - Emergency Visit Emergency Visit: Yes ED Registration Date: 05/27/17 Care time: The patient presented to the Emergency Department on the above date and was hospitalized for further evaluation of their emergent condition. - New Patient This patient is new to me today: No - Critical Care Critical Care patient: No
[2017-05-30] MEDS: SODIUM CHLORIDE 0.45% 1,000 ML IV SCH (11:27)
[2017-05-30] MEDS: PANTOPRAZOLE 40 MG TABLET (FP) PO SCH (21:09)
[2017-05-30] MEDS: metoPROLOL SUCCINATE 25 MG TAB.SR.24H (FP) PO SCH (21:10)
[2017-05-30] MEDS: cloNIDine HCL 0.1 MG TABLET PO SCH (21:11)
[2017-05-30 21:14] VITALS: TEMP 99.2
[2017-05-31] MEDS: ACETAMINOPHEN 325 MG TABLET (FP) PO PRN (04:56)
[2017-05-31] MEDS: INSULIN SLIDING SCALE (NOVOLOG) 1 VIAL SQ SCH (06:16)
[2017-05-31 06:46] VITALS: BP 138/75; PULSE 69
[2017-05-31 09:00] LABS: ANION GAP 4 (8-16); BLOOD UREA NITROGEN 19 mg/dl (7-18); CALCIUM 8.8 mg/dl (8.4-10.2); CHLORIDE 105 mmol/L (98-107); CO2 26 mmol/L (22-28); CREATININE 1.2 mg/dl (0.6-1.3); GLUCOSE,RANDOM 112 mg/dl (74-106); MAGNESIUM 2.1 mg/dL (1.8-2.4); PHOSPHOROUS 2.4 mg/dl (2.5-4.6); POTASSIUM 3.9 mmol/L (3.5-5.1); SODIUM 135 mmol/L (136-145)
[2017-05-31 09:04] LABS: HEMATOCRIT 24.2 % (32.4-45.2); HEMOGLOBIN 8.5 GM/dl (10.7-15.3); MCH 31.4 pg (25.7-33.7); MCHC 35.1 g/dl (32.0-36.0); MEAN CELL VOLUME 89.4 fl (80-96); MEAN PLT VOLUME 7.4 fl (7.5-11.1); PLATELET COUNT 279 K/MM3 (134-434); RDW 13.1 % (11.6-15.6)
[2017-05-31] MEDS: LORATADINE 10 MG TABLET PO SCH (10:05)
[2017-05-31] MEDS: ASPIRIN COATED 81 MG TABLET.EC PO SCH (10:06)
[2017-05-31] MEDS: SENNOSIDES/DOCUSATE COMBO (SENNA PLUS) TABLET (UD) PO SCH (10:07)
[2017-05-31] MEDS: NIACIN 500 MG TABLET PO SCH (10:07)
[2017-05-31] MEDS: PARoxetine HCL 20 MG TABLET (FP) PO SCH (10:07)
[2017-05-31] MEDS: amLODIPine BESYLATE 10 MG TABLET (FP) PO SCH (10:07)
[2017-05-31] MEDS ORDERED: PT OWN MED DRAWER 7, Y5N ONE (10:17)
[2017-05-31] MEDS ORDERED: NAPH,MB-DB/K PH,MBDB POWDER PACKET PO SCH (10:45)
[2017-05-31] MEDS: GABAPENTIN 300 MG CAPSULE (FP) PO SCH (11:06)
[2017-05-31] MEDS: SODIUM CHLORIDE 0.45% 1,000 ML IV SCH (11:14)
--- NOTE | 2017-05-31 12:24 | DS ---
Physical Exam: SUBJECTIVE: Patient seen and examined, ambulated with physical therapy, reports pain to left groin is 4/10 with ambulation, patient denies any paresthesia to the extremity. OBJECTIVE: patient is a 76 y/o female with a past medical history of DJD, hypertension, DM , and HLD. Patient was admitted for elective left total hip replacment, Dr Chambers 05/27/17. Vital Signs Temperature 99.2 F 05/31/17 05:00 Pulse Rate 69 05/31/17 05:00 Respiratory Rate 19 05/31/17 09:43 Blood Pressure 138/75 05/31/17 05:00 O2 Sat by Pulse Oximetry (%) 95 05/31/17 09:43 PHYSICAL EXAM GENERAL: The patient is awake, alert, and fully oriented, in no acute distress. HEAD: Normal with no signs of trauma. EYES: PERRL, extraocular movements intact, sclera anicteric, conjunctiva clear. ENT: Ears normal, nares patent, oropharynx clear without exudates, moist mucous membranes. NECK: Trachea midline, full range of motion, supple. LUNGS: Breath sounds equal, clear to auscultation bilaterally, no wheezes, no crackles, no accessory muscle use. HEART: Regular rate and rhythm, S1, S2 without murmur, rub or gallop. ABDOMEN: Soft, nontender, nondistended, normoactive bowel sounds, no guarding, no rebound, no hepatosplenomegaly, no masses. EXTREMITIES: 2+ pulses, warm, well-perfused, no edema. LEFT LOWER EXTREMITY: dressing cdi, scd/truman, abductor pillow in place, less than 3 second capillary refill, + 3 pedal pulse. NEUROLOGICAL: Cranial nerves II through XII grossly intact. Normal speech, gait not observed. PSYCH: Normal mood, normal affect. SKIN: Warm, dry, normal turgor, no rashes or lesions noted. LABS CBC,CMP WBC 6.0 K/mm3 (4.0-10.8) 05/31/17 07:25 RBC 2.70 M/mm3 (3.60-5.2) L 05/31/17 07:25 Hgb 8.5 GM/dl (10.7-15.3) L 05/31/17 07:25 Hct 24.2 % (32.4-45.2) L 05/31/17 07:25 MCV 89.4 fl (80-96) 05/31/17 07:25 MCH 31.4 pg (25.7-33.7) 05/31/17 07:25 MCHC 35.1 g/dl (32.0-36.0) 05/31/17 07:25 RDW 13.1 % (11.6-15.6) 05/31/17 07:25 Plt Count 279 K/MM3 (134-434) 05/31/17 07:25 MPV 7.4 fl (7.5-11.1) L 05/31/17 07:25 Neutrophils % 71.5 % (42.8-82.8) 05/29/17 06:00 Lymphocytes % 19.4 % (8-40) 05/29/17 06:00 Monocytes % 8.1 % (3.8-10.2) 05/29/17 06:00 Eosinophils % 0.7 % (0-4.5) 05/29/17 06:00 Basophils % 0.3 % (0-2.0) 05/29/17 06:00 Sodium 135 mmol/L (136-145) L 05/31/17 07:25 Potassium 3.9 mmol/L (3.5-5.1) 05/31/17 07:25 Chloride 105 mmol/L (98-107) 05/31/17 07:25 Carbon Dioxide 26 mmol/L (22-28) 05/31/17 07:25 Anion Gap 4 (8-16) L 05/31/17 07:25 BUN 19 mg/dl (7-18) H D 05/31/17 07:25 Creatinine 1.2 mg/dl (0.6-1.3) D 05/31/17 07:25 Creat Clearance w eGFR 31.34 (>60) 05/30/17 07:05 POC Glucometer 120 UNITS (80-120) 05/31/17 05:55 Random Glucose 112 mg/dl (74-106) H D 05/31/17 07:25 Calcium 8.8 mg/dl (8.4-10.2) 05/31/17 07:25 Phosphorus 2.4 mg/dl (2.5-4.6) L 05/31/17 07:25 Magnesium 2.1 mg/dL (1.8-2.4) 05/31/17 07:25 Total Bilirubin 0.9 mg/dl (0.2-1.0) 05/30/17 07:05 AST 23 U/L (10-42) D 05/30/17 07:05 ALT 9 U/L (10-40) L 05/30/17 07:05 Alkaline Phosphatase 59 U/L (32-92) 05/30/17 07:05 Total Protein 5.4 g/dl (6.4-8.3) L 05/30/17 07:05 Albumin 2.6 g/dl (3.5-5.0) L 05/30/17 07:05 HOSPITAL COURSE: The patient was admitted to the Med-Surg Unit after an elective left total hip replacement, 05/27/17, Dr Chambers. Patient is now post op day 4. On post operative day 1, he patient ambulated the hallways with assistance. Narcotic and non-narcotic pain management control was achieved with an oral and IV approach. Patient requested to continue her current pain regimen of tylenol #3 that she takes at home. Blanca-operative IV ABX were administered. DVT prophylaxis was achieved with SCDs and early ambulation. The discharge instructions and an oral pain management plan were reviewed with the patient. All questions answered. Above plan discussed with Dr. Chambers and agreed. Date of Admission:05/27/17 Date of Discharge: 05/31/17 Minutes to complete discharge: 45 Visit type - Case Type Case Type: Scheduled Admission - Emergency Emergency Visit: No - New patient This patient is new to me today: No - Critical Care Critical Care patient: No
--- NOTE | 2017-05-31 12:24 | DS ---
Physical Exam: SUBJECTIVE: Patient seen and examined OBJECTIVE: Vital Signs Period Temp Pulse Resp BP Sys/Hicks Pulse Ox Last 24 Hr 98.5 F-99.2 F 69-82 19-20 115-138/61-75 95-98 PHYSICAL EXAM GENERAL: The patient is awake, alert, and fully oriented, in no acute distress. HEAD: Normal with no signs of trauma. EYES: PERRL, extraocular movements intact, sclera anicteric, conjunctiva clear. ENT: Ears normal, nares patent, oropharynx clear without exudates, moist mucous membranes. NECK: Trachea midline, full range of motion, supple. LUNGS: Breath sounds equal, clear to auscultation bilaterally, no wheezes, no crackles, no accessory muscle use. HEART: Regular rate and rhythm, S1, S2 without murmur, rub or gallop. ABDOMEN: Soft, nontender, nondistended, normoactive bowel sounds, no guarding, no rebound, no hepatosplenomegaly, no masses. EXTREMITIES: 2+ pulses, warm, well-perfused, no edema. NEUROLOGICAL: Cranial nerves II through XII grossly intact. Normal speech, gait not observed. PSYCH: Normal mood, normal affect. SKIN: Warm, dry, normal turgor, no rashes or lesions noted. LABS Laboratory Results - last 24 hr 05/30/17 05/30/17 05/30/17 12:17 17:18 23:26 WBC RBC Hgb Hct MCV MCH MCHC RDW Plt Count MPV Sodium Potassium Chloride Carbon Dioxide Anion Gap BUN Creatinine POC Glucometer 113 150 114 Random Glucose Calcium Phosphorus Magnesium 05/31/17 05/31/17 05/31/17 05:55 07:25 07:25 WBC 6.0 RBC 2.70 L Hgb 8.5 L Hct 24.2 L MCV 89.4 MCH 31.4 MCHC 35.1 RDW 13.1 Plt Count 279 MPV 7.4 L Sodium 135 L Potassium 3.9 Chloride 105 Carbon Dioxide 26 Anion Gap 4 L BUN 19 H D Creatinine 1.2 D POC Glucometer 120 Random Glucose 112 H D Calcium 8.8 Phosphorus 2.4 L Magnesium 2.1 HOSPITAL COURSE: Date of Admission:05/27/17 Date of Discharge: 05/31/17 Minutes to complete discharge: 45 Discharge Summary Reason For Visit: BILATERAL OA OF HIPS - Instructions - Home Medications Comprehensive Discharge Medication List: Ambulatory Orders Acetaminophen W/ Codeine #3 [Tylenol # 3 -] 1 tab PO BID 02/11/17 Amlodipine Besylate 10 mg PO DAILY 02/11/17 Aspirin [Ecotrin] 81 mg PO DAILY 02/11/17 Clonidine HCl 0.1 mg PO HS 02/11/17 Loratadine 10 mg PO DAILY 02/11/17 Metoprolol Succinate [Toprol XL -] 75 mg PO HS 02/11/17 Paroxetine HCl [Paxil] 40 mg PO DAILY 02/11/17 Quinapril HCl [Accupril -] 40 mg PO BID 02/11/17 Pantoprazole Sodium [Protonix -] 40 mg PO HS #30 tablet.ec 02/18/17 Garlic 1 each PO DAILY 05/26/17 Lecithin, Soy [Lecithin] 1,200 mg PO DAILY 05/26/17 Niacin [Niacin ER] 1,000 mg PO DAILY 05/26/17 [place]-3 Fatty Acids [[place]-3] 1,000 mg PO DAILY 05/26/17 - Discharge Referral Referred to [facility] Med [facility].: No
--- NOTE | 2017-05-31 23:55 | OP ---
DATE OF OPERATION: DATE OF DICTATION: 05/31/2017 PROCEDURE: Left total hip replacement Oseas titanium 50 mm, polyethylene liner 36 mm, stem Oseas Accolade 2 127-degree neck shaft angle, high offset number 6. Biolox ceramic 36-mm diameter -2.5 mm length. ESTIMATED BLOOD LOSS: 200 mL. INTRAVENOUS FLUID: 1.6 L crystalloid. ANESTHESIA: Spinal anesthesia and local injection provided. MD SANDRA England/[id number]
--- NOTE | 2017-06-01 15:32 | PATH ---
Surgical Pathology Report Patient Name: SVITLANA ABREU Med. Rec. #: [id number] /Age/Gender: 1940 (Age: 76) / F Account: [id number] Location: [facility] MED-SURG Taken: 05/27/2017 Received: 05/27/2017 Reported: 06/01/2017 Physicians: Marin Chambers M.D. Specimen(s) Received LEFT FEMORAL HEAD Clinical History Osteoarthritis left hip Final Diagnosis FEMORAL HEAD, LEFT, TOTAL HIP REPLACEMENT: DEGENERATIVE JOINT DISEASE. Electronically Signed Sherine El M.D. Gross Description Received in formalin labeled "left femoral head," is a 4.8 x 4.5 x 2.2 cm portion of a femoral head with no femoral neck attached. The margin of resection is jagged. The articular surface displays a 4 cm in greatest dimension area of eburnation. The remaining articular surface is larry and diffusely granular. The underlying trabecular bone is yellow and hard. A client account representative section is submitted in one cassette, following decalcification. /05/31/2017 [facility]05/31/2017
== END 2017-05-31 13:50 | DRG 470 ==
LOC: FM/S 06:00
PROVIDERS: ADMIT Orthopaedic Surgery Adult Reconstructive Orthopaedic Surgery; ATTEND Orthopaedic Surgery Adult Reconstructive Orthopaedic Surgery
PROC: 0SRB04Z Replacement of Left Hip Joint with Ceramic on Polyethylene Synthetic Substitute, Open Approach (ICD-10-PCS; principal; 2017-05-27 10:05)
DX: M16.12 Unilateral primary osteoarthritis, left hip (principal); J95.89 Other postprocedural complications and disorders of respiratory system, not elsewhere classified; J98.11 Atelectasis; N17.9 Acute kidney failure, unspecified; I95.9 Hypotension, unspecified; Z87.891 Personal history of nicotine dependence; Z86.73 Personal history of transient ischemic attack (TIA), and cerebral infarction without residual deficits; E11.22 Type 2 diabetes mellitus with diabetic chronic kidney disease; F32.9 Major depressive disorder, single episode, unspecified; E78.5 Hyperlipidemia, unspecified; Y83.8 Other surgical procedures as the cause of abnormal reaction of the patient, or of later complication, without mention of misadventure at the time of the procedure
CPT/HCPCS: 36415; 71045-TC-FY; 73502-TC-LT-FY; 80048; 80053; 81003; 82962; 83735; 84100; 85025; 85027; 85610; 85730; 87040; 87086; 94010; 94760; 97116-GP; 97161-GP; J0131; J0735; J7030

== ENCOUNTER 2017-09-07 09:00 | Inpatient (IN) | payer BC ==
[2017-08-19 15:30] VITALS: BMI 30.9
[2017-09-07] MEDS ORDERED: BENZOIN/ALOE VERA/STORAX/TOLU 58 ML BOTTLE ONE (16:40)
[2017-09-07] MEDS ORDERED: FAMOTIDINE 20 MG/50 ML IVPB 20 MG/50 ML MG IVPB ONE (16:47)
[2017-09-07] MEDS ORDERED: DEXAMETHASONE SOD PHOSPHATE/PF 10 MG/ML SDV ONE (16:48)
[2017-09-07] MEDS ORDERED: MIDAZOLAM HCL 2 MG/2 ML SINGLE DOSE VIAL ONE (16:48)
[2017-09-07] MEDS ORDERED: BUPIVACAINE HCL/PF (5 MG/ML) 30 ML VIAL IJ ONE (16:49)
[2017-09-07] MEDS ORDERED: ACETAMINOPHEN INJECTION 100 ML IVPB ONE (17:50)
[2017-09-07] MEDS ORDERED: PROPOFOL 20 ML ONE ×3 (19:07→19:59)
--- NOTE | 2017-09-07 21:13 | PN ---
Progress Note (short form) - Note Progress Note: 76 s/p right SASKIA POD #0. -Pain control. -DVT PPx: - Chemical: ASA 81mg PO BID x 6 weeks. - Mechanical: RAFA's, SCD's. -Incentive spirometry. -PT/OT/Rehab, OOB. -WBAT RLE. -Right hip precautions. -Hip abduction pillow. -f/u drain output. -f/u post-op trial of void. -f/u AM labs. -Care per medical hospitalist team. -[facility] planning[facility] [place] [facility]; call for appointment; . -Will follow. Marin Chambers MD (Orthopaedic Surgery).
--- NOTE | 2017-09-07 21:16 | OP ---
Operative Note - Note: Operative Date: 09/07/17 Pre-Operative Diagnosis: Right hip DJD Operation: Right total hip replacement Implants: Oseas. Cup - Tritanium 58mm, cluster hole, 1 x acetabular screw ( 30mm). Stem - Accolade II, #6, 127 deg NSA (high offset). Poly - 32mm, neutral. Head - 32mm, std, Biolox/Delta Ceramic Surgeon: Marin Chambers Nail Specialist: Joshua Chambers Anesthesiologist/CRM FUNCTIONAL ANALYST: Moses Sevilla Anesthesia: Spinal Specimens Removed: Right femoral head Estimated Blood Loss (mls): 150 Drains & Tubes with Location: 1 x deep HemoVac Fluid Volume Replaced (mls): 1,300 Operative Report Dictated: Yes
[2017-09-07] MEDS ORDERED: ONDANSETRON 4 MG/2 ML VIAL IVPUSH PRN ×2 (21:17→21:19)
[2017-09-07] MEDS ORDERED: MAG HYDROX/AL HYDROX/SIMETH 30 ML UNIT-DOSE CUP PO PRN (21:17)
[2017-09-07] MEDS ORDERED: MAGNESIUM HYDROX 2400MG/30ML ORAL SUSPENSION 30 ML CUP PO PRN (21:17)
[2017-09-07] MEDS ORDERED: LACTATED RINGERS SOLUTION 1,000 ML IV SCH (21:30)
[2017-09-07] MEDS ORDERED: HYDROmorphone *PCA* 10MG/50ML DISP.SYRIN PCA SCH (21:30)
[2017-09-07] MEDS: ASPIRIN 325 MG TABLET PO ONE (21:50)
[2017-09-07] MEDS ORDERED: ASPIRIN 325 MG TABLET PO SCH (22:00)
[2017-09-07] MEDS ORDERED: ECONAZOLE NITRATE TP SCH (22:00)
[2017-09-07] MEDS ORDERED: NIACIN 250 MG PO SCH (22:00)
[2017-09-07] MEDS ORDERED: QUINAPRIL HCL 20 MG TABLET (FP) ONE (23:14)
[2017-09-07] MEDS: SENNOSIDES/DOCUSATE COMBO (SENNA PLUS) TABLET (UD) PO SCH (23:23)
[2017-09-07] MEDS: cloNIDine HCL 0.1 MG TABLET PO SCH (23:24)
[2017-09-07] MEDS: QUINAPRIL HCL 40 MG TABLET (FP) PO SCH (23:24)
[2017-09-07] MEDS: metoPROLOL SUCCINATE 25 MG TAB.SR.24H (FP) PO SCH (23:26)
[2017-09-07] MEDS ORDERED: HYDROmorphone *PCA* 10MG/50ML DISP.SYRIN PCA ONE (23:37)
[2017-09-08] MEDS: CEFAZOLIN 2 GM/D5W 2 GM/50 ML ML IVPB SCH ×2 (00:39→08:25)
[2017-09-08] MEDS: ASPIRIN 325 MG TABLET PO ONE (03:26)
--- NOTE | 2017-09-08 07:58 | OP ---
Pre-Operative Diagnosis: Osteoarthritis of the right hip. Post-Operative Diagnosis: Osteoarthritis of the right hip. Surgical Procedure: Right total hip replacement. Anaesthesia: Spinal, sedation. Position: Supine. Incision: Lateral. Estimated Blood Loss: 150cc. Intravenous Fluid: 1.3L crystalloid. Specimens: Right femoral head. Drains: 1 x deep HemoVac. Complications: None. Urine output: None. Bacteriology: None. Transfusions: None. Closure: #1, 2-0 Vicryl & 3-0 Biosyn. Indications: The patient was indicated for a right total hip replacement in order to promote improved motion and mobilization, and to prevent complications associated with a sedentary lifestyle. The patient was identified in the holding area by her armband. A long discussion was held with the patient in the presence of her family regarding the risks, benefits and alternatives of the above-named procedure. Risks include but are not limited to: pain, bleeding, infection, damage to surrounding structures (including nerves, blood vessels, skin, ligaments, tendons and bone), wound complications, failure of hardware/implants/reduction, need for further surgery, blood clots, myocardial infarction, pulmonary embolism , anaesthesia complications, compartment syndrome, limb loss, limp, loss of function, and . Benefits as mentioned above. Alternatives include no surgery. All questions were answered. The patient and her family understood and agreed to the procedure. Informed consent was obtained, witnessed and verified. The patients correct operative limb - that being the right lower extremity - was marked, and the patient was taken to the operating room after being seen by the anesthesia and nursing staff. Procedure: The patient was brought into the operating room, placed on the OR table and secured with a safety strap. Consent and the operative site was again verified with the patient and nursing and anaesthesia staff. Anaesthesia was then administered without complication including 2g IV Ancef, 1g IV Vancomycin, & 1g IV TXA. A time out was done led by me, the attending surgeon. The patient was placed in the supine position with the greater trochanter lying at the edge of the table, thus freeing the muscles of the buttock from the table. All bony prominences were well padded. The non-operative limb was loosely secured to the operating table using a Kerlix bandage. With respect to the pelvis, the true limb lengths were accurately compared. The operative limb was prepped in standard sterile fashion using betadine prep & scrub, wiped off with alcohol, and DuraPrep applied. The operative limb was then free draped. With the patient in the supine position, a modified lateral (Hardinge) approach was utilized to access the hip. The skin incision was centered over the greater trochanter proximally, at the level of the anterior-superior iliac spine, and extended distally, ending 3-5cm distal to the vastus ridge, along the anterior border of the femur. Subcutaneous dissection was carried down to the level of the iliotibial band which was split longitudinally in line with its fibers. The gluteus cash muscle was split proximally in line with its fibers to the level of the apex of the incision. A standard Charnley retractor was then placed subfascially to expose the deep structures. Using electrocautery, a hockey stick incision was utilized to split the anterior fibers of gluteus medius and gain access to the concepcion-lateral femur. This ended parallel to the femur at the entry point to the Guidry-Rincon window. Electrocautery was then used to expose the anterior neck of the femur. The supero-lateral and infero-medial hip capsule was then incised and anterior radial capsular cuts were made as needed. An anterior acetabular retractor was then placed to facilitate exposure. The operative limb was adducted across the midline and the hip was externally rotated with the knee flexed using the tibia as a lever to facilitate an anterolateral hip dislocation. A femoral neck cut was made approximately 1cm proximal to the lesser trochanter using an oscillating saw. The femoral head was delivered out of the operative field. The operative limb was then brought back onto the table and the ankles were crossed. Posterior and inferior acetabular retractors were then placed. The acetabulum was then reamed in sequentially increasing diameter using sharp domed basket reamers. A final size 57mm reamer was used, ensuring concentric acetabular bone bed preparation. A Winslow Tritanium 58mm cup was then impacted, achieving solid press fit in the desired orientation based on pelvic alignment. We elected to supplement cup fixation with a single 30mm acetabular cup fixation screw. A 32mm, neutral highly cross-linked UHMWPE liner was then implanted. All retractors were removed. The operative limb was adducted and externally rotated to allow visualization of the proximal femur. A sharp Hohmann retractor was placed posterior to the tip of the greater trochanter to protect the hip abductor. A box cutting osteotome was used to begin the femoral preparation. A sharp, end cutting reamer was used to manually gain entry to the femoral canal. Next, broaches were delivered via mallet strikes to prepare the proximal femoral bone bed for final implantation. The tibia was used as a goniometer with which we could accurately dial in our desired femoral anteversion. Modular femoral stem, neck, and head trial components were assembled and the hip was reduced. In the supine position, the true limb lengths were matched. The hip was then reduced, and stability was ensured in all physiologic positions of compromise. This included flexion to 90 degrees with adduction and internal rotation. This also included extension and external rotation. At no point did the trunnion impinge upon the cup. A Oseas SecureFit Advanced #6 high offset stem was then implanted using mallet strikes until achieving solid press-fit. A Biolox/Delta Ceramic 32mm diameter, standard length head was then impacted using a protective head impactor and mallet strikes. As before, the hip was reduced and stability was ensured in all physiologic positions of compromise. Again, in the supine position, the true limb lengths were matched. The operative limb satisfactorily lay in physiologic 15 degrees of external rotation. The wounds were copiously irrigated throughout the case and hemostatis was assured. Meticulous technique was implemented to avoid any implants coming into contact with free edges of the wound & skin. A deep HemoVac drain was utilized. The split gluteus medius muscle fibers were reattached using #1 vicryl sutures. The iliotibial band, gluteus cash fascia, and subcutaneous tissues were closed using #1 and 2-0 vicryl sutures. The skin was closed using a running 3-0 Biosyn suture. A sterile compressive dressing was applied. A hip abduction pillow was placed between the legs. The patient was transferred to a hospital bed. A post-operative x-ray was taken with the patient on the hospital bed. This showed the hip to be well reduced with all implants in place and no evidence of paula-prosthetic fracture or retained foreign body. The patient was then transferred to the recovery room in stable condition, as per the anesthesia team, having tolerated the procedure well. MD SANDRA England/[id number] MTDD
[2017-09-08 08:55] LABS: HEMATOCRIT 32.9 % (32.4-45.2); HEMOGLOBIN 11.1 GM/dl (10.7-15.3); MCH 29.5 pg (25.7-33.7); MCHC 33.9 g/dl (32.0-36.0); MEAN CELL VOLUME 87.1 fl (80-96); MEAN PLT VOLUME 8.1 fl (7.5-11.1); PLATELET COUNT 242 K/MM3 (134-434); RBC 3.78 M/mm3 (3.60-5.2); RDW 13.6 % (11.6-15.6); WHITE BLOOD COUNT 9.7 K/mm3 (4.0-10.8)
[2017-09-08] MEDS ORDERED: QUINAPRIL HCL 20 MG TABLET (FP) ONE ×2 (08:55→21:36)
[2017-09-08 08:58] LABS: ANION GAP 9 (8-16); BLOOD UREA NITROGEN 18 mg/dl (7-18); CALCIUM 9.3 mg/dl (8.4-10.2); CHLORIDE 102 mmol/L (98-107); CO2 22 mmol/L (22-28); CREATININE 1.2 mg/dl (0.6-1.3); GLUCOSE,RANDOM 135 mg/dl (74-106); POTASSIUM 4.2 mmol/L (3.5-5.1); SODIUM 133 mmol/L (136-145)
[2017-09-08] MEDS: ASPIRIN 81 MG CHEWABLE TABLETS PO SCH ×2 (09:05→21:59)
[2017-09-08] MEDS: LACTATED RINGERS SOLUTION 1,000 ML IV SCH (09:05)
[2017-09-08] MEDS: QUINAPRIL HCL 40 MG TABLET (FP) PO SCH ×2 (09:05→21:59)
[2017-09-08] MEDS: PARoxetine HCL 20 MG TABLET (FP) PO SCH (09:06)
[2017-09-08] MEDS: PANTOPRAZOLE 40 MG TABLET (FP) PO SCH (09:06)
[2017-09-08] MEDS: SENNOSIDES/DOCUSATE COMBO (SENNA PLUS) TABLET (UD) PO SCH ×2 (09:06→21:59)
--- NOTE | 2017-09-08 09:45 | CONSULT ---
Consultation: REQUESTING PROVIDER: Dr Chambers CONSULT REQUEST: We have been asked to medically evaluate this patient for s/p right hip replacement HISTORY OF PRESENT ILLNESS: patient is a 76 y/o female, htn, copd, anxiety, gerd , cva, ckd, patient was admitted after an elective left total right hip replacement, pod #1. , REVIEW OF SYSTEMS: CONSTITUTIONAL: Absent: fever, chills, diaphoresis, generalized weakness, malaise, loss of appetite, weight change HEENT: Absent: rhinorrhea, nasal congestion, throat pain, throat swelling, difficulty swallowing, mouth swelling, ear pain, eye pain, visual changes CARDIOVASCULAR: Absent: chest pain, syncope, palpitations, irregular heart rate, lightheadedness , peripheral edema RESPIRATORY: Absent: cough, shortness of breath, dyspnea with exertion, orthopnea, wheezing, stridor, hemoptysis GASTROINTESTINAL: Absent: abdominal pain, abdominal distension, nausea, vomiting, diarrhea, constipation, melena, hematochezia GENITOURINARY: Absent: dysuria, frequency, urgency, hesitancy, hematuria, flank pain, genital pain MUSCULOSKELETAL: present: left hip pain Absent: myalgia, arthralgia, joint swelling, back pain, neck pain SKIN: Absent: rash, itching, pallor HEMATOLOGIC/IMMUNOLOGIC: Absent: easy bleeding, easy bruising, lymphadenopathy, frequent infections ENDOCRINE: Absent: unexplained weight gain, unexplained weight loss, heat intolerance, cold intolerance NEUROLOGIC: Absent: headache, focal weakness or paresthesias, dizziness, unsteady gait, seizure, mental status changes, bladder or bowel incontinence PSYCHIATRIC: Absent: anxiety, depression, suicidal or homicidal ideation, hallucinations. PHYSICAL EXAMINATION Vital Signs - 24 hr 09/07/17 09/07/17 09/07/17 12:13 12:26 21:10 Temperature 98.2 F 98.4 F Pulse Rate 56 L 52 L Respiratory 16 13 Rate Blood Pressure 143/80 146/75 O2 Sat by Pulse 97 100 Oximetry (%) 09/07/17 09/07/17 09/07/17 21:15 21:17 21:20 Temperature 97.7 F Pulse Rate 52 L 58 L 54 L Respiratory 13 19 14 Rate Blood Pressure 146/75 158/89 142/66 O2 Sat by Pulse 100 100 Oximetry (%) 09/07/17 09/07/17 09/07/17 21:25 21:40 22:00 Temperature 97.7 F Pulse Rate 53 L 52 L 58 L Respiratory 19 14 18 Rate Blood Pressure 129/68 137/72 158/89 O2 Sat by Pulse 100 100 96 Oximetry (%) 09/07/17 09/08/17 09/08/17 23:30 00:00 00:09 Temperature Pulse Rate 66 67 Respiratory 18 18 Rate Blood Pressure 140/81 139/73 O2 Sat by Pulse 96 Oximetry (%) 09/08/17 09/08/17 09/08/17 00:30 01:00 01:17 Temperature Pulse Rate 68 64 69 Respiratory 18 18 18 Rate Blood Pressure 134/77 140/81 136/82 O2 Sat by Pulse Oximetry (%) 09/08/17 09/08/17 01:30 06:00 Temperature 97.8 F Pulse Rate 67 63 Respiratory 18 18 Rate Blood Pressure 139/73 165/90 O2 Sat by Pulse 98 Oximetry (%) GENERAL: Awake, alert, and fully oriented, in no acute distress. HEAD: Normal with no signs of trauma. EYES: Pupils equal, round and reactive to light, extraocular movements intact, sclera anicteric, conjunctiva clear. No lid lag. EARS, NOSE, THROAT: Ears normal, nares patent, oropharynx clear without exudates. Moist mucous membranes. NECK: Normal range of motion, supple without lymphadenopathy, JVD, or masses. LUNGS: Breath sounds equal, clear to auscultation bilaterally. No wheezes, and no crackles. No accessory muscle use. HEART: Regular rate and rhythm, normal S1 and S2 without murmur, rub or gallop. ABDOMEN: Soft, nontender, not distended, normoactive bowel sounds, no guarding, no rebound, no masses. No hepatomegaly or splenomegaly. MUSCULOSKELETAL: Normal range of motion at all joints. No bony deformities or tenderness. No CVA tenderness. UPPER EXTREMITIES: 2+ pulses, warm, well-perfused. No cyanosis. No clubbing. Cap refill <2 seconds. No peripheral edema. LOWER EXTREMITIES: left hip cdi intact, hemvoac drain scan, 2+ pulses, warm, well-perfused. No calf tenderness. No peripheral edema. NEUROLOGICAL: Cranial nerves II-XII intact. Normal speech. Normal gait. PSYCHIATRIC: Cooperative. Good eye contact. Appropriate mood and affect. SKIN: Warm, dry, normal turgor, no rashes or lesions noted. Laboratory Results - last 24 hr 09/08/17 09/08/17 07:30 07:30 WBC 9.7 RBC 3.78 Hgb 11.1 Hct 32.9 D MCV 87.1 MCH 29.5 MCHC 33.9 RDW 13.6 Plt Count 242 MPV 8.1 Sodium 133 L Potassium 4.2 Chloride 102 Carbon Dioxide 22 Anion Gap 9 BUN 18 Creatinine 1.2 Creat Clearance w eGFR 43.68 Random Glucose 135 H D Calcium 9.3 Active Medications Generic Name Dose Route Start Last Admin Trade Name Freq PRN Reason Stop Dose Admin Al Hydroxide/Mg Hydroxide 30 ml 09/07/17 21:17 Mylanta Oral Suspension - PO Q4H PRN DYSPEPSIA Amlodipine Besylate 10 mg 09/08/17 10:00 Norvasc - PO DAILY JENNIFER Aspirin 81 mg 09/08/17 10:00 09/08/17 09:05 Asa - PO 81 mg BID JENNIFER Administration Clonidine 0.1 mg 09/07/17 22:00 09/07/17 23:24 Catapres - PO 0.1 mg HS JENNIFER Administration Hydromorphone HCl 0 mg 09/07/17 21:30 09/07/17 23:30 Dilaudid Osha Inspector - MS SQL DBA 09/14/17 21:19 10 mg MS SQL DBA JENNIFER Administration Protocol Lactated Ringer's 1,000 mls @ 75 mls/hr 09/08/17 06:00 09/08/17 09:05 Lactated Ringers Solution IV 75 mls/hr ASDIR JENNIFER Administration Magnesium Hydroxide 30 ml 09/07/17 21:17 Milk Of Magnesia - PO PRN PRN CONSTIPATION Metoprolol Succinate 75 mg 09/07/17 22:00 09/07/17 23:26 Toprol Xl - PO 75 mg HS JENNIFER Administration Non-Formulary Medication 15 gm 09/07/17 22:00 Econazole Nitrate [Econazole Nitrate] TP BID JENNIFER Non-Formulary Medication 250 mg 09/07/17 22:00 Niacin [Niacin Er] PO BID JENNIFER Ondansetron HCl 4 mg 09/07/17 21:17 Zofran Injection IVPUSH Q6H PRN NAUSEA Pantoprazole Sodium 40 mg 09/08/17 10:00 09/08/17 09:06 Protonix - PO 40 mg DAILY JENNIFER Administration Paroxetine HCl 40 mg 09/08/17 10:00 09/08/17 09:06 Paxil - PO 40 mg DAILY JENNIFER Administration Quinapril HCl 40 mg 09/07/17 22:00 09/08/17 09:05 Accupril - PO 40 mg BID JENNIFER Administration Senna/Docusate Sodium 2 tablet 09/07/17 22:00 09/08/17 09:06 Pericolace - PO 2 tablet BID JENNIFER Administration ASSESSMENT/PLAN: 1) MS right THR - prn pain medication - monitor I/o - repeat hgb 11.1 stable - PT as per orthopedist 2) cardiovascular htn - continue home medication, b/p at goal cva - fall precautions 3) nephrology CKD - creatine 1.2, close monitoring - avoid nephrotoxic agents Dispo: We will continue to follow the patient. Thank you for this consultative opportunity.
[2017-09-08] MEDS: amLODIPine BESYLATE 10 MG TABLET (FP) PO SCH (10:00)
[2017-09-08] MEDS ORDERED: oxyCODONE HCL 5 MG TABLET PO PRN (13:36)
--- NOTE | 2017-09-08 13:40 | PN ---
Progress Note (short form) - Note Progress Note: 76F POD1 s/p R THR under spinal anesthetic with peripheral nerve block for post operative pain relief. Pt requested dilaudid IV [employer]IDENT yesterday. Pain is well controlled. Discussed d/c'ing [employer] and starting an oral regimen in anticipation of discharge. Pt agreed. AVSS. Motor and sensory function intact in bilateral lower extremities. No anesthetic complications. Will follow.
[2017-09-08] MEDS: ACETAMINOPHEN 325 MG TABLET (FP) PO SCH ×2 (13:53→19:55)
[2017-09-08] MEDS: oxyCODONE HCL 5 MG TABLET PO PRN (18:10)
[2017-09-08] MEDS: metoPROLOL SUCCINATE 25 MG TAB.SR.24H (FP) PO SCH (21:59)
[2017-09-08] MEDS: cloNIDine HCL 0.1 MG TABLET PO SCH (21:59)
[2017-09-08] MEDS: GABAPENTIN 300 MG CAPSULE (FP) PO SCH (21:59)
[2017-09-08] MEDS: oxyCODONE HCL 10 MG SUSTAINED ACTING TABLET PO SCH (22:00)
[2017-09-09] MEDS: ACETAMINOPHEN 325 MG TABLET (FP) PO SCH ×3 (01:50→13:25)
[2017-09-09] MEDS ORDERED: QUINAPRIL HCL 20 MG TABLET (FP) ONE (09:05)
[2017-09-09 09:19] VITALS: PULSE 59
[2017-09-09] MEDS: ASPIRIN 81 MG CHEWABLE TABLETS PO SCH (09:20)
[2017-09-09] MEDS: SENNOSIDES/DOCUSATE COMBO (SENNA PLUS) TABLET (UD) PO SCH (09:20)
[2017-09-09] MEDS: GABAPENTIN 300 MG CAPSULE (FP) PO SCH (09:20)
[2017-09-09] MEDS: PARoxetine HCL 20 MG TABLET (FP) PO SCH (09:20)
[2017-09-09] MEDS: LACTATED RINGERS SOLUTION 1,000 ML IV SCH (09:20)
[2017-09-09] MEDS: PANTOPRAZOLE 40 MG TABLET (FP) PO SCH (09:20)
[2017-09-09] MEDS: oxyCODONE HCL 10 MG SUSTAINED ACTING TABLET PO SCH (09:21)
[2017-09-09] MEDS: QUINAPRIL HCL 40 MG TABLET (FP) PO SCH (09:21)
[2017-09-09] MEDS: amLODIPine BESYLATE 10 MG TABLET (FP) PO SCH (09:21)
[2017-09-09 09:32] LABS: HEMATOCRIT 29.4 % (32.4-45.2); HEMOGLOBIN 10.4 GM/dl (10.7-15.3); MCH 30.5 pg (25.7-33.7); MCHC 35.3 g/dl (32.0-36.0); MEAN CELL VOLUME 86.4 fl (80-96); MEAN PLT VOLUME 7.8 fl (7.5-11.1); PLATELET COUNT 204 K/MM3 (134-434); RDW 13.9 % (11.6-15.6); WHITE BLOOD COUNT 9.4 K/mm3 (4.0-10.8)
--- NOTE | 2017-09-09 12:10 | DS ---
Physical Exam: SUBJECTIVE: POD #2 Right SASKIA patient seen and examined at bedside with no complaints. Pain controlled and denies any CP, SOB, Fever or Chills. She is ambulating with assistance and tolerating her diet OBJECTIVE: Vital Signs Period Temp Pulse Resp BP Sys/Hicks Pulse Ox Last 24 Hr 97.7 F-100.0 F 59-77 18-19 100-166/59-81 96-97 PHYSICAL EXAM GENERAL: The patient is awake, alert, and fully oriented, in no acute distress. HEAD: Normal with no signs of trauma. EYES: sclera anicteric, conjunctiva clear. LUNGS: unlabored resp on RA, no accessory muscle use. ABDOMEN: Soft, nontender, nondistended, normoactive bowel sounds, no guarding, no rebound, no hepatosplenomegaly, no masses. EXTREMITIES: Right hip dressing c/d/i with surrounding tissue intact and no evidence of tracking d/c or collection. Thigh soft, supple with mild ttp throughout, Drain removed with tip fully intact and pressure dressing applied. B /L LE compartments soft, supple and non-tender with 2+ pulses, warm, well- perfused, 5/5 dorsi/plantar flexion NEUROLOGICAL: Cranial nerves II through XII grossly intact. Normal speech, gait not observed. PSYCH: Normal mood, normal affect. SKIN: Warm, dry, normal turgor, no rashes or lesions noted. Laboratory Results - last 24 hr 07/13/18 07:30 WBC 9.4 RBC 3.40 L Hgb 10.4 L Hct 29.4 L MCV 86.4 MCH 30.5 MCHC 35.3 RDW 13.9 Plt Count 204 MPV 7.8 HOSPITAL COURSE: Date of Admission:18 The patient was admitted to the Med-Surg Unit after Right SASKIA. Now, s/p right SASKIA. An xray was obtained in the OR and confirmed hardware placement in good position with no fractures or dislocations. The day of surgery, the patient ambulated the hallways with assistance. Narcotic and non-narcotic pain management control was achieved with an oral and IV approach. POD #2, the surgical drain was removed fully intact and without incident. Blanca-operative IV ABX were administered. DVT prophylaxis was achieved with SCDs and early ambulation. The patient ambulated with Physical Therapy and rehab was recommended. Narcotic scripts and were checked with [place] [facility] prior to escibe. The discharge instructions and an oral pain management plan were reviewed with the patient. All questions answered. Date of Discharge: 09/09/17 Minutes to complete discharge: 25 Discharge Summary Reason For Visit: UNILATERAL OA RIGHT HIP - Instructions Diet, Activity, Other Instructions: Dr. Chambers Discharge Instructions for Hip Replacement Post Operative Instructions Physical activity Physical Therapist will come to your home for the first 5 days. You will be set up with outpatient PT at your first post-operative visit. Use assistive devices for ambulation at all times. Weight bearing as tolerated on your surgical side. Wound care Leave your surgical dressing in place. Do not change the dressing until seen by your surgeon in the office. No baths or showers. Do not submerge your incision. Do not apply any ointments or lotions to your incision. Please call the office if your dressing is soiled/dirty or is falling off. Apply Graduated Compression Stockings (TEDS) to both lower extremities-remove daily for hygiene ONLY. Diet There are no dietary restrictions. Eat healthy, high-fiber foods. Drink 6 to 8 glasses of liquid each day. This will assist in keeping your bowels are regular. Pain management Any pain prescription medication ordered should be taken as prescribed for moderate to severe pain. Do not take additional Tylenol while taking Percocet. Posterior Hip Precautions: Do not cross the leg you had surgery on over your other leg. (Do not cross your legs.) Use an elevated toilet seat. Do not sit on low chairs or beds. Use purple pillow (abductor) when lying in bed. Take Aspirin 81 mg two times a day for a total of 6 weeks to prevent blood clots. Call Dr. Chambers for any of the following: Severe pain not relieved by medication Fever of 101 or higher Excessive bleeding or drainage on dressing Inability to urinate If you experience chest pain or shortness of breath, please seek emergency care immediately. Please call the office at to confirm your post-op appointment for the week following surgery. - Home Medications Comprehensive Discharge Medication List: Ambulatory Orders Amlodipine Besylate 10 mg PO DAILY 02/11/17 Clonidine HCl 0.1 mg PO HS 02/11/17 Loratadine 10 mg PO DAILY 02/11/17 Metoprolol Succinate [Toprol XL -] 75 mg PO HS 02/11/17 Paroxetine HCl [Paxil] 40 mg PO DAILY 02/11/17 Quinapril HCl [Accupril -] 40 mg PO BID 02/11/17 Garlic 1 each PO DAILY 05/26/17 Lecithin, Soy [Lecithin] 1,200 mg PO DAILY 05/26/17 Niacin [Niacin ER] 250 mg PO BID 05/26/17 Clinton-3 Fatty Acids [Clinton-3] 1,000 mg PO DAILY 05/26/17 Aspirin Coated [Ecotrin -] 81 mg PO DAILY 08/19/17 Econazole Nitrate 15 gm TP BID 08/19/17 Pantoprazole Sodium [Protonix -] 40 mg PO DAILY 08/19/17 Acetaminophen W/ Codeine #3 [Tylenol # 3 -] 1 tab PO Q12H PRN 09/07/17 Docusate Sodium [Colace] 100 mg PO DAILY 09/07/17 Problem List - Problems (1) Osteoarthritis Assessment/Plan: POD #2 Right SASKIA doine well 1) Continue ASA x 6 weeks 2) WBAT with assist and walker- posterior precautions 3) d/c to rehab today Code(s): M19.90 - UNSPECIFIED OSTEOARTHRITIS, UNSPECIFIED SITE This patient is new to me today: Yes Date on this admission: 09/09/17 Emergency Visit: No Critical Care patient: No - Discharge Referral Referred to [facility] No
[2017-09-09 14:43] VITALS: BP 118/60; TEMP 98.7
[2017-09-09] MEDS: oxyCODONE HCL 5 MG TABLET PO PRN (17:00)
--- NOTE | 2017-09-12 16:22 | PATH ---
Surgical Pathology Report Patient Name: SVITLANA ABREU Med. Rec. #: [id number] /Age/Gender: 1940 (Age: 76) / F Account: [id number] Location: [facility] Taken: 09/08/2017 Received: 09/08/2017 Reported: 09/12/2017 Physicians: Joshua Chambers M.D. Specimen(s) Received RIGHT FEMORAL HEAD Clinical History Right hip osteoarthritis Final Diagnosis RIGHT FEMORAL HEAD, RESECTION: DEGENERATIVE JOINT DISEASE, RIGHT HIP Electronically Signed Tima Watson M.D. Gross Description Received in formalin, labeled "right femoral head," is a 4.5 x 4.5 x 4.2 cm. femoral head with a 1.4 cm in length portion of femoral length attached. The margin of resection is smooth. There is a 1 cm in greatest dimension area of eburnation present. The remaining articular surface is larry-yellow and diffusely granular. The underlying trabecular bone is yellow and hard. A factory representative section is submitted in one cassette, following decalcification. 09/09/201709/09/2017
== END 2017-09-09 17:10 | disposition home or self-care (01) | DRG 470 ==
LOC: FM/S 11:12
PROVIDERS: ADMIT Orthopaedic Surgery Orthopaedic Surgery of the Spine; ATTEND Orthopaedic Surgery Orthopaedic Surgery of the Spine
PROC: 0SR902Z Replacement of Right Hip Joint with Metal on Polyethylene Synthetic Substitute, Open Approach (ICD-10-PCS; principal; 2017-09-07 19:14)
DX: M16.11 Unilateral primary osteoarthritis, right hip (principal); I12.9 Hypertensive chronic kidney disease with stage 1 through stage 4 chronic kidney disease, or unspecified chronic kidney disease; N18.9 Chronic kidney disease, unspecified; J44.9 Chronic obstructive pulmonary disease, unspecified; Z86.73 Personal history of transient ischemic attack (TIA), and cerebral infarction without residual deficits; K21.9 Gastro-esophageal reflux disease without esophagitis; F41.9 Anxiety disorder, unspecified
CPT/HCPCS: 36415; 73523-TC-FY; 80048; 85027; 97116-GP; J0131; J0735